=== PATIENT | male | born 1990 | race Asian ===

== ENCOUNTER 2016-06-15 00:30 | Inpatient (IN) | payer MEDICARE, OTHER ==
[~2016-06-15] VITALS: Ht 176.5 cm; Wt 93.1 kg
[~2016-06-15 00:30] MED LIST: BENZ1 PO; HALO10 PO; HALO50P IM; OLAN10 PO; PROT40TA PO
[2016-06-15 00:35] VITALS: BP 129/87; PULSE 77; RESP 16; TEMP 97.5; O2SAT 98
[2016-06-15] MEDS ORDERED: HALO2TAB PO (03:33)
[2016-06-15] MEDS ORDERED: OLAN10TA PO (03:33)
[2016-06-15] MEDS ORDERED: BENZ1TAB PO (03:33)
[2016-06-15] MEDS ORDERED: SODIUM CHLOR 0.9% 1000 ML INJ 1,000 ML IV SCH (03:42)
[2016-06-15] MEDS ORDERED: ONDANSETRON HCL 4 MG/2 ML VIAL IVP ONE (03:45)
[2016-06-15] MEDS ORDERED: SODIUM CHLORIDE 0.9% FLUSH 5 ML FLUSH IVF PRN (03:45)
--- NOTE | 2016-06-15 03:46 | PD ---
HPI Chief Complaint: Cold / Flu Symptoms Time Seen by Provider: 03:36 Travel History International Travel<30 days: No Contact w/Intl Traveler<30days: No Traveled to known affect area: No History of Present Illness HPI The patient is a 26-year-old male who presents emergency department for flulike symptoms. The patient states over the last several days he has had a sore throat, dry nonproductive cough, nausea, vomiting, diarrhea, intermittent abdominal crampy pain, and myalgias. The patient states his last episode of vomiting and diarrhea was approximately 2 hours prior to arrival. The patient does complain of subjective fevers with intermittent chills and sweats. The patient also has a history of schizophrenia and states he's had difficulty sleeping over the last several days. The patient is hearing voices in his head but denies any suicidal or homicidal ideation. The mother's request and a psychiatric evaluation for the voices and agitated mood. The patient's psychiatrist is Dr. Amado. The patient denies any recent international travel or sick contacts at home. PFSH Past Medical History Asthma: Yes (SINCE AGE 4 OR 5) Blood Disorders: No Bipolar Disorder: Yes Anxiety: Yes Depression: No Heart Rhythm Problems: No Cancer: No Cardiovascular Problems: No High Cholesterol: No Chemotherapy: No Chest Pain: No Congestive Heart Failure: No COPD: No Diabetes: No Diminished Hearing: No Endocrine: No Gastrointestinal Disorders: No Genitourinary: No Immune Disorder: No Musculoskeletal: No Neurologic: No Psychiatric: Yes (shizopherenia) Reproductive: No Respiratory: No Immunizations Current: Yes Radiation Therapy: No Schizophrenia: Yes Sleep Apnea: No Thyroid Disease: No Influenza Vaccination: No Past Surgical History Other Surgery: Yes (see history and physical) Social History Alcohol Use: No Tobacco Use: Yes (states he quit smoking last night) Substance Use: No (pt denies) Allergies-Medications (Allergen,Severity, Reaction): Coded Allergies: No Known Allergies (Verified , 06/15/16) Reported Meds & Prescriptions Reported Meds & Active Scripts Active Reported Haloperidol 2 Mg Tab 2 Mg PO BID Benztropine (Benztropine Mesylate) 1 Mg Tab 1 Mg PO HS Olanzapine 10 Mg Tab 10 Mg PO HS Review of Systems General / Constitutional: Positive: Fever, Chills HENT: Positive: Sore Throat Respiratory: Positive: Cough Gastrointestinal: Positive: Nausea, Vomiting, Diarrhea, Abdominal Pain Genitourinary: No: Dysuria Musculoskeletal: Positive: Myalgias Psychiatric: Positive: Disorder of Thought, No: Substance Abuse Physical Exam Narrative GENERAL: Awake, alert, 26-year-old male who appears his stated age and is in no acute respiratory distress. SKIN: Warm and dry. HEAD: Atraumatic. Normocephalic. EYES: Pupils equal and round. No scleral icterus. No injection or drainage. ENT: No nasal bleeding or discharge. Oropharynx reveals erythema but no exudate. NECK: Trachea midline. No JVD. CARDIOVASCULAR: Regular rate and rhythm. No murmur appreciated. RESPIRATORY: No accessory muscle use. Clear to auscultation. Breath sounds equal bilaterally. GASTROINTESTINAL: Abdomen soft, non-tender, nondistended. No rebound tenderness. MUSCULOSKELETAL: No obvious deformities. No clubbing. No cyanosis. No edema. NEUROLOGICAL: Awake and alert. No obvious cranial nerve deficits. Motor grossly within normal limits. Normal speech. Nonfocal. PSYCHIATRIC: Appropriate mood and affect; insight and judgment normal. Data Data Last Documented VS Vital Signs Date Time Temp Pulse Resp B/P Pulse Ox O2 Delivery O2 Flow Rate FiO2 06/15/16 04:01 79 16 135/83 96 Room Air 06/15/16 00:35 97.5 Orders Complete Blood Count With Diff (06/15/16 03:42) Comprehensive Metabolic Panel (06/15/16 03:42) Lipase (06/15/16 03:42) Iv Access Insert/Monitor (06/15/16 03:42) Ecg Monitoring (06/15/16 03:42) Oximetry (06/15/16 03:42) Ondansetron Inj (Zofran Inj) (06/15/16 03:45) Sodium Chlor 0.9% 1000 Ml Inj (Ns 1000 M (06/15/16 03:42) Sodium Chloride 0.9% Flush (Ns Flush) (06/15/16 03:45) Psych Screen (06/15/16 03:42) Influenzae A/B Antigen (06/15/16 03:46) Labs Laboratory Tests Test 06/15/16 03:50 White Blood Count 7.7 TH/MM3 Red Blood Count 6.21 MIL/MM3 Hemoglobin 16.9 GM/DL Hematocrit 50.1 % Mean Corpuscular Volume 80.6 FL Mean Corpuscular Hemoglobin 27.3 PG Mean Corpuscular Hemoglobin 33.8 % Concent Red Cell Distribution Width 13.9 % Platelet Count 221 TH/MM3 Mean Platelet Volume 8.3 FL Neutrophils (%) (Auto) 63.7 % Lymphocytes (%) (Auto) 28.7 % Monocytes (%) (Auto) 6.1 % Eosinophils (%) (Auto) 0.8 % Basophils (%) (Auto) 0.7 % Neutrophils # (Auto) 4.9 TH/MM3 Lymphocytes # (Auto) 2.2 TH/MM3 Monocytes # (Auto) 0.5 TH/MM3 Eosinophils # (Auto) 0.1 TH/MM3 Basophils # (Auto) 0.1 TH/MM3 CBC Comment DIFF FINAL Differential Comment Sodium Level 139 MEQ/L Potassium Level 4.0 MEQ/L Chloride Level 102 MEQ/L Carbon Dioxide Level 24.5 MEQ/L Anion Gap 13 MEQ/L Blood Urea Nitrogen 7 MG/DL Creatinine 0.83 MG/DL Estimat Glomerular Filtration 111 ML/MIN Rate Random Glucose 87 MG/DL Calcium Level 9.1 MG/DL Total Bilirubin 0.6 MG/DL Aspartate Amino Transf 56 U/L (AST/SGOT) Alanine Aminotransferase 93 U/L (ALT/SGPT) Alkaline Phosphatase 74 U/L Total Protein 8.6 GM/DL Albumin 4.5 GM/DL Lipase 145 U/L MDM Medical Decision Making Medical Screen Exam Complete: Yes Emergency Medical Condition: Yes Medical Record Reviewed: Yes Interpretation(s) Date/Time Procedure Status Source Growth 06/15/16 03:50 Influenza Types A,B Antigen (ERIC) - Final Complete Nasal Aspirate NEGATIVE FOR FLU A AND B ANTIGEN.... Laboratory Tests Test 06/15/16 03:50 White Blood Count 7.7 TH/MM3 Red Blood Count 6.21 MIL/MM3 Hemoglobin 16.9 GM/DL Hematocrit 50.1 % Mean Corpuscular Volume 80.6 FL Mean Corpuscular Hemoglobin 27.3 PG Mean Corpuscular Hemoglobin 33.8 % Concent Red Cell Distribution Width 13.9 % Platelet Count 221 TH/MM3 Mean Platelet Volume 8.3 FL Neutrophils (%) (Auto) 63.7 % Lymphocytes (%) (Auto) 28.7 % Monocytes (%) (Auto) 6.1 % Eosinophils (%) (Auto) 0.8 % Basophils (%) (Auto) 0.7 % Neutrophils # (Auto) 4.9 TH/MM3 Lymphocytes # (Auto) 2.2 TH/MM3 Monocytes # (Auto) 0.5 TH/MM3 Eosinophils # (Auto) 0.1 TH/MM3 Basophils # (Auto) 0.1 TH/MM3 CBC Comment DIFF FINAL Differential Comment Sodium Level 139 MEQ/L Potassium Level 4.0 MEQ/L Chloride Level 102 MEQ/L Carbon Dioxide Level 24.5 MEQ/L Anion Gap 13 MEQ/L Blood Urea Nitrogen 7 MG/DL Creatinine 0.83 MG/DL Estimat Glomerular Filtration 111 ML/MIN Rate Random Glucose 87 MG/DL Calcium Level 9.1 MG/DL Total Bilirubin 0.6 MG/DL Aspartate Amino Transf 56 U/L (AST/SGOT) Alanine Aminotransferase 93 U/L (ALT/SGPT) Alkaline Phosphatase 74 U/L Total Protein 8.6 GM/DL Albumin 4.5 GM/DL Lipase 145 U/L Differential Diagnosis Differential diagnosis includes gastritis, influenza, viral syndrome, food poisoning, schizoaffective disorder, schizophrenia, psychosis, substance induced mood disorder. Narrative Course IV was established, labs were drawn and sent, and the patient was placed on cardiac telemetry monitoring and continuous pulse oximetry monitoring. Influenza screen was sent to lab. The patient was administered Zofran and 1 L of IV fluids. The patient's influenza screen is negative. AST nail tear mildly elevated, otherwise labs are unremarkable. The patient is medically clear to be admitted by psychiatry. Disposition as per psych. Diagnosis Primary Impression: Gastroenteritis Additional Impression: Schizophrenia, chronic with acute exacerbation Condition: Stable Wilbert Escalona MD Jun 15, 2016 03:46
[2016-06-15 04:01] VITALS: BP 135/83; PULSE 79; RESP 16; O2SAT 96
[2016-06-15 04:05] LABS: AUTOMATED NEUTROPHIL # 4.9 TH/MM3 (1.8-7.7); BASOPHIL # 0.1 TH/MM3 (0-0.2); BASOPHIL % 0.7 % (0.0-2.0); EOSINOPHIL # 0.1 TH/MM3 (0-0.4); EOSINOPHIL % 0.8 % (0.0-4.0); HEMATOCRIT 50.1 % (39.0-51.0); HEMO FLAGS DIFF FINAL; LYMPH % 28.7 % (9.0-44.0); LYMPHOCYTE # 2.2 TH/MM3 (1.0-4.8); MEAN CELL VOLUME 80.6 FL (80.0-100.0); MEAN CORPUSCULAR HEMOGLOBIN 27.3 PG (27.0-34.0); MEAN CORPUSCULAR HGB CONC 33.8 % (32.0-36.0); MONO % 6.1 % (0.0-8.0); NEUT % 63.7 % (16.0-70.0); PLATELET COUNT 221 TH/MM3 (150-450); RED BLOOD COUNT 6.21 MIL/MM3 (4.50-5.90); RED CELL DISTRIBUTION WIDTH 13.9 % (11.6-17.2); WHITE BLOOD COUNT 7.7 TH/MM3 (4.0-11.0)
[2016-06-15 04:37] LABS: ALKALINE PHOSPHATASE 74 U/L (45-117); TOTAL BILIRUBIN ADULT 0.6 MG/DL (0.2-1.0)
[2016-06-15 04:39] LABS: ALT (GPT) 93 U/L (12-78); ANION GAP 13 MEQ/L (5-15); AST (GOT) 56 U/L (15-37); BICARBONATE 24.5 MEQ/L (21.0-32.0); BLOOD UREA NITROGEN 7 MG/DL (7-18); CHLORIDE 102 MEQ/L (98-107); GLOMERULAR FILTRATION RATE 111 ML/MIN (>89); SODIUM (NA) 139 MEQ/L (136-145)
[2016-06-15 09:00] VITALS: BP 138/92; PULSE 72; RESP 18; TEMP 98.7; O2SAT 96
[2016-06-15 11:55] LABS: AMPHETAMINE, URINE NEG (NEG); BARBITURATES, URINE NEG (NEG); COCAINE, URINE NEG (NEG)
[2016-06-15] MEDS ORDERED: LORazepam 2 MG/ML VIAL IM PRN (17:15)
[2016-06-15] MEDS ORDERED: ALUMINUM/MAGNESIUM/SIMETH 30 ML CUP PO PRN (17:15)
[2016-06-15] MEDS ORDERED: MAGNESIUM HYDROXIDE SUSP 30 ML CUP PO PRN (17:15)
[2016-06-15] MEDS ORDERED: ACETAMINOPHEN 325 MG TAB PO PRN (17:15)
[2016-06-15] MEDS ORDERED: LORazepam 1 MG TAB PO PRN (17:15)
[2016-06-15 17:55] VITALS: BP 193/97; PULSE 77; RESP 18; TEMP 97.4; O2SAT 97
[2016-06-15] MEDS: REMOVE OLD NICOTINE PATCH T-DERMAL SCH (21:00)
[2016-06-15] MEDS: HALOPERIDOL 2 MG TAB PO SCH (21:16)
[2016-06-16 06:04] VITALS: BP 154/75; PULSE 70; RESP 18; TEMP 97.2; O2SAT 98
[2016-06-16 07:36] LABS: ANION GAP 10 MEQ/L (5-15); BICARBONATE 27.5 MEQ/L (21.0-32.0); BLOOD UREA NITROGEN 6 MG/DL (7-18); CHLORIDE 104 MEQ/L (98-107); GLOMERULAR FILTRATION RATE 96 ML/MIN (>89); POTASSIUM 3.7 MEQ/L (3.5-5.1); SODIUM (NA) 141 MEQ/L (136-145)
[2016-06-16 07:41] LABS: HDL CHOLESTEROL 57.5 MG/DL (40.0-60.0); LDL CHOLESTEROL 40 MG/DL (0-99)
[2016-06-16] MEDS: HALOPERIDOL 2 MG TAB PO SCH ×3 (08:42→20:34)
[2016-06-16] MEDS: NICOTINE 21 MG/24 HR PATCH T-DERMAL SCH (08:42)
--- NOTE | 2016-06-16 10:43 | HHI.HP ---
Provisional Diagnosis Admission Date Jun 15, 2016 at 17:05 [place] I. Schizo affective disorder bipolar type. [place] II. No diagnosis [place] III. Please see the emergency room evaluation [place] IV. Moderate stress [place] V. GAF of 45 Certification of Person's Competence To Provide Express and Informed Consent I have personally examined Adelaide Garduno , a person being served at [facility] on, Jun 16, 2016 10:36. Express and informed consent means consent voluntarily given in writing, by a competent person, after sufficient explanation and disclosure of the subject matter involved to enable the person to make a knowing and willful decision without any element of force, fraud, deceit, duress, or other form of constraint or coercion. This person is 18 years of age or older, is not now known to be incompetent to consent to treatment with a guardian advocate, and does not have a health care surrogate or proxy currently making medical treatment decisions. I have found this person to be one of the following: [x] Competent to provide express and informed consent, as defined above, for voluntary admission to this facility and is competent to provide express and informed consent for treatment. He/she has the consistent capacity to make well reasoned, willful, and knowing decisions concerning his or her medical or mental health treatment. The person fully and consistently understands the purpose of the admission for examination/placement and is fully capable of personally exercising all rights assured [place] Incompetent to provide express and informed consent to voluntary admission, and this is incompetent to provide express and informed consent to treatment. The person must be transferred to involuntary status and a petition for a guardian advocate filed with the Circuit Court. [] Refusing to provide express and informed consent to voluntary admission but is competent to provide express and informed consent for treatment. The person must be discharged or transferred to involuntary status. Form shall be completed within 24 hours of a person's arrival at the receiving facility and filed in the clinical record of each person: 1. Admitted on a voluntary basis 2. Permitted to provide express and informed consent to his/her own treatment 3. Allowed to transfer from involuntary to voluntary status 4. Prior to permitting a person to consent to his or her own treatment after having been previously found incompetent to consent to treatment. History of Present Illness Capacity: Has Capacity HPI This is a 26-year-old male who was admitted. He came as a voluntary and later on the ex parte paper came in. Patient claimed that he does not want to take any medication because it makes him feel bad he is not able to sleep. He denies any suicidal and/or homicidal ideation intentions or plan. He denied any auditory or visual hallucinations. He lives with his mother. He claimed that he has tried Seroquel and Depakote Abilify and Haldol nothing seems to be working and he does not want to take any medication. No behavior or management problem reported. He lives with his mother and follows up as an outpatient. Review of Systems Except as stated in HPI: all other systems reviewed are Neg Psychiatric: COMPLAINS OF: Mood changes Past Psych History Psychological trauma history Patient denied any physical verbal or sexual abuse growing up Violence risk - others (6 mos) Patient denied any violence risk Violence risk - self (6 mos) Patient denied any suicidal ideation intentions or plan Substance Abuse History Drugs/Alcohol past 12 months Patient denied any alcohol or drug abuse in the past 12 months Past Family Social History Coded Allergies: No Known Allergies (Verified , 06/15/16) Reported Medications Haloperidol 2 Mg Tab2 Mg PO BID Ref 0 06/15/16 Benztropine 1 Mg Tab1 Mg PO HS #30 TAB Ref 0 06/15/16 Olanzapine 10 Mg Tab10 Mg PO HS #30 TAB Ref 0 06/15/16 Current Medications Medications (Trade) Dose Ordered Sig/Lorin Route Start Time Stop Time Status Last Admin (NS Flush) 2 ml UNSCH PRN IVF 06/15/16 03:45 (Ativan) 1 mg Q6H PRN PO 06/15/16 17:15 (Ativan Inj) 1 mg Q6H PRN IM 06/15/16 17:15 (Tylenol) 650 mg Q4H PRN PO 06/15/16 17:15 (Milk Of Magnesia Liq) 30 ml DAILY PRN PO 06/15/16 17:15 (Mag-Al Plus Susp Liq) 30 ml Q6H PRN PO 06/15/16 17:15 (Habitrol 21 Mg Patch.24 Hr) 1 patch DAILY T-DERMAL 06/16/16 09:00 06/16/16 08:42 Miscellaneous Information 1 HS T-DERMAL 06/15/16 21:00 06/15/16 21:00 (Haldol) 2 mg BID PO 06/15/16 21:00 06/16/16 08:42 (ZyPREXA) 10 mg HS PO 06/16/16 21:00 (Cogentin) 1 mg HS PO 06/16/16 21:00 Family History Questionable for depression or mental illness Social History Patient was born in [facility]. He has 2 brothers and one sister. He is close to both of his parents. He described his childhood as happy he denied any physical verbal or sexual abuse growing up. He finished high school and college. He has not been he does not have any children. He denied any auditory or visual hallucinations denied any alcohol or drug abuse. Has not been working. He claimed that the medication doesn't seem to be helping him Patient's Strengths (min. 2) Patient is calm and cooperative Physical Exam Please see the emergency room evaluation patient denied any physical complaints his vital signs are stable and he was medically cleared to be admitted to psychiatric unit Vital Signs Vital Signs Date Time Temp Pulse Resp B/P Pulse Ox O2 Delivery O2 Flow Rate FiO2 06/16/16 06:04 97.2 70 18 154/75 98 06/15/16 09:00 Room Air Mental Status Examination This is a 26-year-old male who looks about the same as his stated age was alert oriented 3 cooperative casually dressed his speech was clear spontaneous without any evidence of loose associations or flights of ideas or pressure speech his mood was described as not feeling well and having some side effects from the medication that he has been taking and he does not want to take the medication. He denied any suicidal ideation intentions or plan. He denied any auditory or visual hallucinations. There was no evidence of any paranoid delusion. No behavior or management problem reported. He seems to be of file low average intelligence with fairly good memory. His insight is limited and his judgment seems to be okay on hypothetical situation his gait is normal his language is normal his fund of knowledge is average Assessment & Plan Problem List: (1) Schizophrenia, chronic with acute exacerbation ICD Code: F20.9 (2) Schizoaffective disorder, bipolar type ICD Code: F25.0 Assessment & Plan Estimated LOS: 5 days. This is a 26-year-old white male with a diagnosis of either schizophrenic disorder or schizoaffective disorder. Has been having some difficulty with taking the medication he complaints about side effect and does not wish to take the medication. He has been living with his mother will try to find out some medication that he can take without any side effect area. Admitted observe and evaluate and treat. Patient is willing to sign voluntary. Patient will participate in all the therapeutic activity on the floor. Side effect another alternative treatment were explained to the patient. nutrition services associate to assist in aftercare and discharge planning. Vital signs every shift. Request HC Surrog/Guard Advoc?: No David Ceballos MD Jun 16, 2016 10:43
[2016-06-16] MEDS: BENZTROPINE MESYLATE 1 MG TAB PO SCH ×2 (20:29→20:34)
[2016-06-16] MEDS: OLANZapine 10 MG TAB PO SCH ×2 (20:30→20:34)
[2016-06-16] MEDS: REMOVE OLD NICOTINE PATCH T-DERMAL SCH (20:33)
[2016-06-16 22:26] VITALS: BP 132/88; PULSE 72; RESP 18; TEMP 98.5; O2SAT 98
[2016-06-17 05:34] VITALS: BP 130/66; PULSE 76; RESP 18; TEMP 97.6; O2SAT 97
[2016-06-17] MEDS: NICOTINE 21 MG/24 HR PATCH T-DERMAL SCH (09:00)
[2016-06-17] MEDS: HALOPERIDOL 2 MG TAB PO SCH (09:00)
[2016-06-17 10:12] LABS: HEMOGLOBIN A1a 0.9 %; HEMOGLOBIN A1b 0.6 %; HEMOGLOBIN Ao 56.8 %; HEMOGLOBIN F 1.3 %; HEMOGLOBIN LA1C 1.3 %; HEMOGLOBIN P3 4.4 %
--- NOTE | 2016-06-17 15:58 | HHI.PYPN ---
Subjective Remarks Patient was seen and case discussed with nursing. Patient has refused his Zyprexa last night and his Haldol today. He was asking nursing earlier for Adderall. He remains disheveled and hyperverbal. Flight of ideas. Poor insight into his admission. Irritable towards his mother. Psychoeducation was done and patient is willing to give Zyprexa another try. We will order its 5 mg by mouth twice a day. Denies psychotic symptoms Objective Alert: Yes [place]: Person Mood: Anxious, Oppositional Affect: Other (anxious) Memory Intact: Comment (not tested) Hallucinations: Other (denies blood poor historian) Delusions: No Delusion Type: Paranoid (thinking there are germs on the unit) Suicidal: Ideation (denies) Homicidal: Ideation (denies) Insight/Judgement Poor Labs Date/Time Procedure Status Source Growth 06/15/16 03:50 Influenza Types A,B Antigen (ERIC) - Final Complete Nasal Aspirate NEGATIVE FOR FLU A AND B ANTIGEN.... Vitals/IOs Vital Signs Date Time Temp Pulse Resp B/P Pulse Ox O2 Delivery O2 Flow Rate FiO2 06/17/16 05:34 97.6 76 18 130/66 97 06/15/16 09:00 Room Air Assessment & Plan Problem List: (1) Schizophrenia, chronic with acute exacerbation ICD Code: F20.9 (2) Schizoaffective disorder, bipolar type ICD Code: F25.0 Assessment & Plan DC Haldol. Change Zyprexa to 5 mg by mouth twice a day. Encouraged compliance Justification for Cont. Inpt. Patient will decompensate in a less restrictive setting Request HC Surrog/Guard Advoc?: No Pj Joshua DO Jun 17, 2016 15:58
[2016-06-17] MEDS: OLANZapine 5 MG TAB PO SCH ×2 (16:00→21:22)
[2016-06-17 19:08] VITALS: BP 130/95; PULSE 78; RESP 18; TEMP 98.1; O2SAT 92
[2016-06-17] MEDS: REMOVE OLD NICOTINE PATCH T-DERMAL SCH (21:00)
[2016-06-17] MEDS: BENZTROPINE MESYLATE 1 MG TAB PO SCH (21:22)
[2016-06-18 06:23] VITALS: BP 132/68; PULSE 74; RESP 18; TEMP 98.2; O2SAT 96
[2016-06-18] MEDS: NICOTINE 21 MG/24 HR PATCH T-DERMAL SCH ×2 (09:00→09:17)
[2016-06-18] MEDS: OLANZapine 5 MG TAB PO SCH (09:17)
--- NOTE | 2016-06-18 10:01 | HHI.PYPN ---
Subjective Remarks I am assuming care of this patient. Patient seen and examined with nurse. Chart reviewed. Case discussed with nursing staff who reports patient has been no behavioral problem. On my examination today, patient is in good spirits. He says that he came into the hospital because he didn't think his medications were working right. He denies any suicidal or homicidal ideation. He denies any audiovisual hallucinations but also say that he is hearing something like " a fly in my ear." Thought process seems generally linear and there is no evidence of any paranoia or other significant delusional material. He does articulate difficulty concentrating and says that he thinks he might have attention deficit disorder and might need a stimulant. Psychoeducation provided regarding the effects of stimulants on patients with psychotic illnesses. He denies side effects from medications. He does not wish to resume Haldol Decanoate, which he has been on in the past, preferring to continue with Zyprexa monotherapy. He is agreeable to titrating his Zyprexa and is presently voluntary. Review of Systems ROS Limitations: Poor Historian Other No physical complaints today Objective Alert: Yes [place]: Person, Place Mood: Calm, Happy Affect: Blunted Memory Intact: Comment (not formally assessed but seems at least fair on clinical exam) Hallucinations: Other (denies AVH) Delusions: No Delusion Type: Other (no regine delusional material) Suicidal: Ideation (denies suicidal ideation) Homicidal: Ideation (denies homicidal ideation) Insight/Judgement Fair to poor Remarks No motoric abnormalities noted. Thought process fairly linear. Speech within normal limits for rate, tone and volume. Grooming and hygiene seem fair. Labs Date/Time Procedure Status Source Growth 06/15/16 03:50 Influenza Types A,B Antigen (ERIC) - Final Complete Nasal Aspirate NEGATIVE FOR FLU A AND B ANTIGEN.... Labs reviewed including CBC, CMP and tox screen. Extended toxicological screening pending. Vitals/IOs Vital Signs Date Time Temp Pulse Resp B/P Pulse Ox O2 Delivery O2 Flow Rate FiO2 06/18/16 06:23 98.2 74 18 132/68 96 06/15/16 09:00 Room Air VS reviewed. HTN earlier this admission seems resolved now. Assessment & Plan Problem List: (1) Schizophrenia ICD Code: F20.9 (2) Cannabis abuse ICD Code: F12.10 Assessment & Plan Titrate Zyprexa per patient preference and to try to improve subjective difficulties with concentration, which I suspect are at least in part related to distraction from some degree of internal preoccupation or subtle thought disorder. Continue other medications and care as ordered. Justification for Cont. Inpt. Medication adjustments in process. Discharge Planning Pending psychiatric stabilization. I have asked counselor to reach out the patient's family with patient's permission to discuss disposition; his mother seems fairly involved. Patient is presently voluntary, and I see no basis to change his status at this time. Request HC Surrog/Guard Advoc?: No Problem Qualifiers (1) Schizophrenia: Qualified Code: F20.0 - Paranoid schizophrenia Tj Jose MD Jun 18, 2016 10:00
[2016-06-18 18:11] VITALS: BP 128/84; PULSE 79; RESP 18; TEMP 98; O2SAT 95
[2016-06-18] MEDS: OLANZapine 2.5 MG TAB PO SCH (20:23)
[2016-06-18] MEDS: BENZTROPINE MESYLATE 1 MG TAB PO SCH (20:23)
[2016-06-18] MEDS: REMOVE OLD NICOTINE PATCH T-DERMAL SCH (20:24)
[2016-06-19 05:35] VITALS: BP 133/67; PULSE 53; RESP 18; TEMP 97.7; O2SAT 98
[2016-06-19] MEDS: OLANZapine 2.5 MG TAB PO SCH ×2 (08:17→20:34)
[2016-06-19] MEDS: NICOTINE 21 MG/24 HR PATCH T-DERMAL SCH (08:17)
--- NOTE | 2016-06-19 11:47 | HHI.PYPN ---
Subjective Remarks Patient seen and examined with nurse. Chart reviewed. Case discussed in treatment team with nurse, counselor and occupational therapist. Per nursing staff, patient is calm and cooperative with no behavioral problems. On my examination today, patient is in good spirits. He says that titrating his Zyprexa yesterday was "just the medication adjustment I needed." He feels much improved and denies any SI, HI or AVH. He no longer feels like he can hear a fly buzzing in his ear. He denies any side effects from medications. He is hopeful for discharge tomorrow. Review of Systems Other No physical complaints today Objective Alert: Yes [place]: Person, Place Mood: Happy Affect: Euthymic Memory Intact: Comment (Intact on clinical exam.) Hallucinations: Other (denies AVH) Delusions: No Delusion Type: Other (No delusions) Suicidal: Ideation (denies SI) Homicidal: Ideation (denies HI) Insight/Judgement Fair Remarks Thought processes linear. No abnormal motor movements noted. Speech within normal limits for rate, tone and volume. Grooming and hygiene are good. Labs Date/Time Procedure Status Source Growth 06/15/16 03:50 Influenza Types A,B Antigen (ERIC) - Final Complete Nasal Aspirate NEGATIVE FOR FLU A AND B ANTIGEN.... Labs reviewed. Vitals/IOs Vital Signs Date Time Temp Pulse Resp B/P Pulse Ox O2 Delivery O2 Flow Rate FiO2 06/19/16 05:35 97.7 53 18 133/67 98 06/15/16 09:00 Room Air Assessment & Plan Problem List: (1) Schizophrenia ICD Code: F20.9 (2) Cannabis abuse ICD Code: F12.10 Assessment & Plan Patient seems to be doing well with current regimen. Continue Zyprexa as ordered. Continue other medications and care as ordered. Justification for Cont. Inpt. Final discharge planning Discharge Planning Monitor overnight. Anticipate discharge tomorrow. Request HC Surrog/Guard Advoc?: No Problem Qualifiers (1) Schizophrenia: Qualified Code: F20.0 - Paranoid schizophrenia Tj Jose MD Jun 19, 2016 11:47
[2016-06-19 17:30] VITALS: BP 146/88; PULSE 69; RESP 18; TEMP 98.2; O2SAT 98
[2016-06-19] MEDS: BENZTROPINE MESYLATE 1 MG TAB PO SCH (20:34)
[2016-06-19] MEDS: REMOVE OLD NICOTINE PATCH T-DERMAL SCH (20:47)
[2016-06-20 06:11] VITALS: BP 119/78; PULSE 52; RESP 18; TEMP 97.6; O2SAT 99
[2016-06-20] MEDS: NICOTINE 21 MG/24 HR PATCH T-DERMAL SCH ×2 (08:17→08:34)
[2016-06-20] MEDS: OLANZapine 2.5 MG TAB PO SCH (08:18)
[2016-06-20] MEDS ORDERED: BENZ1TAB PO (11:18)
[2016-06-20] MEDS ORDERED: OLAN2.5T PO (11:18)
--- NOTE | 2016-06-20 11:18 | HHI.DS ---
Psychiatry Discharge Summary Inpatient Psychiatric care?: Yes Advance Directive: No Reason Not Provided: refused Mental Health AdvanceDirective: No Health Care Proxy: No Admission Admission Date Jun 15, 2016 at 17:05 Admission Diagnosis: (1) Schizoaffective disorder, bipolar type ICD Code: F25.0 (2) Schizophrenia, chronic with acute exacerbation ICD Code: F20.9 Brief History This is a 26-year-old male who was admitted. He came as a voluntary and later on the ex parte paper came in. Patient claimed that he does not want to take any medication because it makes him feel bad he is not able to sleep. He denies any suicidal and/or homicidal ideation intentions or plan. He denied any auditory or visual hallucinations. He lives with his mother. He claimed that he has tried Seroquel and Depakote Abilify and Haldol nothing seems to be working and he does not want to take any medication. No behavior or management problem reported. He lives with his mother and follows up as an outpatient. Tobacco Use In Past 30 Days: No Tobacco Past 30 Days Alcohol Use: Never Hospital Course Patient was admitted to a locked, inpatient psychiatric unit. Appropriate precautions were in place throughout patient's hospital stay. Patient was seen and examined daily on the unit by psychiatry and also visited by counselor. Medications were adjusted. Patient responded nicely to titration of Zyprexa to a total daily dose of 15 mg per day. He had significant improvement in his presenting psychiatric symptomatology. There was no evidence of any suicidal or homicidal behavior on the inpatient unit. Patient remained in good behavioral control and was medication compliant. Charting indicates the patient has been sleeping and eating well although his participation in unit activities has been somewhat limited. On the day of discharge: Patient seen and examined. Chart reviewed. Case discussed with nursing staff who reports patient has been calm and pleasant and no behavioral problem. On my examination today, the patient reports that he feels improved and is requesting discharge from the inpatient psychiatric unit today. Mood is good, and he denies any suicidal or homicidal ideation. He is future oriented with several near and long-term goals. For example, he would like to go to the gym and also to do some volunteer work. He denies any audiovisual hallucinations, and I can elicit no delusional beliefs. He denies any side effects from medications. He has no physical complaints. Weighing the acute, chronic, and protective factors and based on the available evidence, I circuit judge to a reasonable degree of medical certainty that the patient is at low imminent risk of harm to self or others from a mental illness as defined under the Syed act and his level of function is adequate for outpatient care. Given that I have no basis to retain this patient involuntarily at this time and given that he is requesting discharge from the inpatient psychiatric unit today, I will arrange for his discharge was psychiatric follow-up as arranged by counselor. Patient is also to follow-up with primary care. I counseled patient regarding warning signs for need to return to the psychiatric emergency room as part of a general safety plan. Results Blood Pressure 119 / 78 Vital Signs Date Time Temp Pulse Resp B/P Pulse Ox O2 Delivery O2 Flow Rate FiO2 06/20/16 06:11 97.6 52 18 119/78 99 Laboratory Results Test 06/16/16 06:41 Hemoglobin A1c 5.7 % (4.3-6.0) Triglycerides Level 121 MG/DL (42-150) Cholesterol Level 122 MG/DL (120-200) LDL Cholesterol 40 MG/DL (0-99) HDL Cholesterol 57.5 MG/DL (40.0-60.0) Summary of Procedures None done Imaging None done Pending results at discharge: No Medications # of Antipsychotic meds at D/C: 1 Approp Antipsych med options 1 - Minimum of three failed multiple trials of monotherapy. 2 - Documented plan to taper to monotherapy due to previous use of multiple meds OR cross-taper in progress at D/C. 3 - Documentation of augmentation of Clozapine. 4 - Justification other than those listed in allowable values 1-3, document here : Discharge Discharge Date: Jun 20, 2016 Discharge Diagnosis: (1) Schizophrenia Diagnosis: Principal (stabilized) ICD Code: F20.9 (2) Cannabis abuse Diagnosis: Secondary (counseled to quit) ICD Code: F12.10 GAF on discharge is 55. Mental Status Exam at Disch Patient is casually dressed. He is fairly well groomed and certainly maintaining basic hygiene. He is awake and alert and oriented to person and hospital at least. No abnormal motor movements noted. Speech is within normal limits for rate, tone and volume. Language and fund of knowledge seem at least average. Mood is good and affect is full and reactive. Thought process linear. No loosening of associations. No evident delusions. Denies audiovisual hallucinations. Denies suicidal or homicidal ideation. Insight and judgment are fair. Pt Condition on Discharge: Stable Discharge Disposition: Discharge Home Discharge Instructions Diet Instructions: As Tolerated, No Restrictions Activities you can perform: Weight Bearing as Nils Scheduled Appointment: [facility] Evette Meggan Appointment Date: Jun 25, 2016 Appointment Time: 7:30am New Medications: Olanzapine (Olanzapine) 2.5 Mg Tab 7.5 MG PO Q12HR Mental Health Days 15 Ref 1 TAB Continued Medications: Benztropine (Benztropine) 1 Mg Tab 1 MG PO HS Side effect management Days 15 Ref 1 TAB (This prescription has been renewed) Discontinued Medications: Haloperidol (Haloperidol) 2 Mg Tab 2 MG PO BID Ref 0 TAB Olanzapine (Olanzapine) 10 Mg Tab 10 MG PO HS #30 Ref 0 TAB Discharge Time <= 30 minutes Discharge/Advance Care Plan Health Problems: (1) Schizophrenia (2) Cannabis abuse Goals to promote your health * To prevent worsening of your condition and complications * To maintain your health at the optimal level Directions to meet your goals Take your medications as prescribed Follow your dietary instruction Follow activity as directed Keep your appointments as scheduled Take your immunizations and boosters as scheduled If your symptoms worsen call your PCP, if no PCP go to Urgent Care Center or Emergency Room For 29/10 questions related to your inpatient stay or results of tests pending at discharge, please contact Dr. Tj Jose at Smoking is Dangerous to Your Health. Avoid second hand smoking Problem Qualifiers (1) Schizophrenia: Qualified Code: F20.0 - Paranoid schizophrenia Tj Jose MD Jun 20, 2016 11:18
[2016-06-20 11:24] LABS: PHENCYCLIDINE URINE NEG (NEG)
[2016-06-20 11:25] LABS: BATH SALTS (MDPV) UR NEG (NEG); ECSTASY (MDMA) UR NEG (NEG); HEROIN (6-ACETYLMORPHINE) UR NEG (NEG); K2 SPICE UR NEG (NEG); OBMETHADONE UR NEG (NEG); OXYCODONE (PERCODAN) NEG (NEG)
== END 2016-06-20 16:30 | disposition home or self-care (01) | DRG 885 ==
LOC: NEPC 00:30 → NEDA 17:05 → H270 17:39
PROVIDERS: ADMIT Psychiatry & Neurology Psychiatry; ATTEND Psychiatry & Neurology Psychiatry
DX: F20.0 Paranoid schizophrenia (principal); F12.10 Cannabis abuse, uncomplicated; K52.9 Noninfective gastroenteritis and colitis, unspecified; J45.909 Unspecified asthma, uncomplicated
CPT/HCPCS: 80048; 80053; 80061; 80307; 83036; 83690; 85025; 87804; 96361; 96374; G0481; J2405; J7030

== ENCOUNTER 2016-07-13 03:13 | Inpatient (IN) | payer MEDICARE, OTHER ==
[~2016-07-13] VITALS: Ht 175.3 cm; Wt 94.1 kg
[~2016-07-13 03:13] MED LIST changes: -BENZ1 PO; +BENZ1TAB PO; -HALO10 PO; -HALO50P IM; -OLAN10 PO; +OLAN2.5T PO; -PROT40TA PO
[2016-07-13 03:34] VITALS: BP 113/63; PULSE 91; RESP 16; TEMP 98.7; O2SAT 99
--- NOTE | 2016-07-13 03:44 | PD ---
HPI Chief Complaint: Psychiatric Symptoms Time Seen by Provider: 03:30 Travel History International Travel<30 days: No Contact w/Intl Traveler<30days: No Traveled to known affect area: No History of Present Illness HPI This Is a 26-year-old male with history of schizophrenia and bipolar disorder per chart review. He presents under an exparte held by his mother and signed off by [facility] court judge for mental health examination. According to his paperwork the mother reported that he is not taking his medication and he has not slept in 3 days. He "wanted to kill himself. He locked himself in bedroom. He confused, memory lose, yelling, anger. He refused to take medicine." The patient was initially seen at [facility] and transferred here for psychiatric evaluation. This evening the patient received Ativan, Haldol and Benadryl per chart review. He is currently being and so history is difficult to obtain. He does awaken and answer questions someone prompted, albeit lethargically. The patient denies any suicidal ideation. He reports that he told a joke his mother and his mother did not think that he was choking. He does admit that he has not been sleeping well lately secondary to stress. He does not elaborate. When asked if he is taking his prescribed medication he says yes. He does not know what he is prescribed. He denies any drug or alcohol use. He is requesting something to eat and a blanket. He has no other complaints. PFSH Past Medical History Asthma: Yes (SINCE AGE 4 OR 5) Blood Disorders: No Bipolar Disorder: Yes Anxiety: Yes Depression: No Heart Rhythm Problems: No Cancer: No Cardiovascular Problems: No High Cholesterol: No Chemotherapy: No Chest Pain: No Congestive Heart Failure: No COPD: No Diabetes: No Diminished Hearing: No Endocrine: No Gastrointestinal Disorders: No Genitourinary: No Headaches: No Immune Disorder: No Musculoskeletal: No Neurologic: No Psychiatric: Yes (Hx of treatment for Schizophrenia) Reproductive: No Respiratory: No Immunizations Current: Yes Radiation Therapy: No Schizophrenia: Yes Sleep Apnea: No Thyroid Disease: No Past Surgical History Other Surgery: Yes (see history and physical) Social History Alcohol Use: No Tobacco Use: Yes (states he quit smoking last night) Substance Use: Yes (MARIJUANA) Allergies-Medications (Allergen,Severity, Reaction): Coded Allergies: No Known Allergies (Verified , 06/15/16) Reported Meds & Prescriptions Reported Meds & Active Scripts Active Olanzapine 2.5 Mg Tab 7.5 Mg PO Q12HR 15 Days Benztropine (Benztropine Mesylate) 1 Mg Tab 1 Mg PO HS 15 Days Review of Systems ROS Limitations: Poor Historian Except as stated in HPI: all other systems reviewed are Neg Physical Exam Exam Limitations: Poor Historian Narrative GENERAL: Well-developed well-nourished male who is sleeping but arousable. SKIN: Warm and dry. HEAD: Atraumatic. Normocephalic. EYES: Pupils equal and round. No scleral icterus. No injection or drainage. ENT: No nasal bleeding or discharge. Mucous membranes pink and moist. NECK: Trachea midline. No JVD. CARDIOVASCULAR: Regular rate and rhythm. No murmur appreciated. RESPIRATORY: No accessory muscle use. Clear to auscultation. Breath sounds equal bilaterally. GASTROINTESTINAL: Abdomen soft, non-tender, nondistended. Hepatic and splenic margins not palpable. MUSCULOSKELETAL: No obvious deformities. NEUROLOGICAL: No obvious cranial nerve deficits. Motor grossly within normal limits. Normal speech. Data Data Last Documented VS Vital Signs Date Time Temp Pulse Resp B/P Pulse Ox O2 Delivery O2 Flow Rate FiO2 07/13/16 03:34 98.7 91 16 113/63 99 Orders Complete Blood Count With Diff (07/13/16 03:35) Comprehensive Metabolic Panel (07/13/16 03:35) Psych Screen (07/13/16 03:35) Drug Screen, Random Urine (07/13/16 03:35) Alcohol (Ethanol) (07/13/16 03:35) Labs Laboratory Tests Test 07/13/16 03:40 White Blood Count 7.7 TH/MM3 Red Blood Count 5.79 MIL/MM3 Hemoglobin 15.6 GM/DL Hematocrit 46.5 % Mean Corpuscular Volume 80.2 FL Mean Corpuscular Hemoglobin 26.9 PG Mean Corpuscular Hemoglobin 33.6 % Concent Red Cell Distribution Width 14.6 % Platelet Count 205 TH/MM3 Mean Platelet Volume 8.1 FL Neutrophils (%) (Auto) 57.0 % Lymphocytes (%) (Auto) 30.9 % Monocytes (%) (Auto) 10.9 % Eosinophils (%) (Auto) 0.6 % Basophils (%) (Auto) 0.6 % Neutrophils # (Auto) 4.4 TH/MM3 Lymphocytes # (Auto) 2.4 TH/MM3 Monocytes # (Auto) 0.8 TH/MM3 Eosinophils # (Auto) 0.0 TH/MM3 Basophils # (Auto) 0.0 TH/MM3 CBC Comment DIFF FINAL Differential Comment Sodium Level 139 MEQ/L Potassium Level 3.5 MEQ/L Chloride Level 101 MEQ/L Carbon Dioxide Level 27.1 MEQ/L Anion Gap 11 MEQ/L Blood Urea Nitrogen 9 MG/DL Creatinine 0.91 MG/DL Estimat Glomerular Filtration 100 ML/MIN Rate Random Glucose 107 MG/DL Calcium Level 9.4 MG/DL Total Bilirubin 0.5 MG/DL Aspartate Amino Transf 41 U/L (AST/SGOT) Alanine Aminotransferase 74 U/L (ALT/SGPT) Alkaline Phosphatase 67 U/L Total Protein 7.5 GM/DL Albumin 3.9 GM/DL Ethyl Alcohol Level 48 MG/DL [facility] Medical Decision Making Medical Screen Exam Complete: Yes Emergency Medical Condition: Yes Medical Record Reviewed: Yes Differential Diagnosis Schizophrenia, medication noncompliance, acute psychosis, substance-induced disorder, bipolar disorder Narrative Course 26-year-old male presents under exparte for psychiatric evaluation. He has been seen here several times in the past for psychiatric evaluation. He has no medical complaints. Mental health screening discussed with the patient. Psychiatric screen ordered. Alcohol level is 48 otherwise lab work is unremarkable. The patient is medically cleared for psychiatric disposition. Diagnosis Primary Impression: Schizophrenia Qualified Code: F20.9 - Schizophrenia, unspecified type Elliot Andres Jul 13, 2016 03:44
[2016-07-13 03:49] LABS: AUTOMATED NEUTROPHIL # 4.4 TH/MM3 (1.8-7.7); BASOPHIL % 0.6 % (0.0-2.0); EOSINOPHIL % 0.6 % (0.0-4.0); HEMATOCRIT 46.5 % (39.0-51.0); HEMO FLAGS DIFF FINAL; LYMPH % 30.9 % (9.0-44.0); LYMPHOCYTE # 2.4 TH/MM3 (1.0-4.8); MEAN CELL VOLUME 80.2 FL (80.0-100.0); MEAN CORPUSCULAR HEMOGLOBIN 26.9 PG (27.0-34.0); MEAN CORPUSCULAR HGB CONC 33.6 % (32.0-36.0); MONO % 10.9 % (0.0-8.0); PLATELET COUNT 205 TH/MM3 (150-450); RED BLOOD COUNT 5.79 MIL/MM3 (4.50-5.90); RED CELL DISTRIBUTION WIDTH 14.6 % (11.6-17.2); WHITE BLOOD COUNT 7.7 TH/MM3 (4.0-11.0)
[2016-07-13 04:14] LABS: ANION GAP 11 MEQ/L (5-15); AST (GOT) 41 U/L (15-37); BICARBONATE 27.1 MEQ/L (21.0-32.0); BLOOD UREA NITROGEN 9 MG/DL (7-18); CHLORIDE 101 MEQ/L (98-107); GLOMERULAR FILTRATION RATE 100 ML/MIN (>89); POTASSIUM 3.5 MEQ/L (3.5-5.1); SODIUM (NA) 139 MEQ/L (136-145)
[2016-07-13 04:17] LABS: ALKALINE PHOSPHATASE 67 U/L (45-117); ALT (GPT) 74 U/L (12-78); TOTAL BILIRUBIN ADULT 0.5 MG/DL (0.2-1.0)
[2016-07-13] MEDS ORDERED: MAGNESIUM HYDROXIDE SUSP 30 ML CUP PO PRN (10:15)
[2016-07-13] MEDS ORDERED: ACETAMINOPHEN 325 MG TAB PO PRN (10:15)
[2016-07-13] MEDS ORDERED: LORazepam 2 MG/ML VIAL IM PRN (10:15)
[2016-07-13] MEDS ORDERED: ALUMINUM/MAGNESIUM/SIMETH 30 ML CUP PO PRN (10:15)
--- NOTE | 2016-07-13 10:32 | HHI.HP ---
Provisional Diagnosis Admission Date [place] I. Schizophrenia chronic paranoid type with exacerbation f 20.0 Certification of Person's Competence To Provide Express and Informed Consent I have personally examined Adelaide Garduno , a person being served at [facility] on, Jul 13, 2016 10:19. Express and informed consent means consent voluntarily given in writing, by a competent person, after sufficient explanation and disclosure of the subject matter involved to enable the person to make a knowing and willful decision without any element of force, fraud, deceit, duress, or other form of constraint or coercion. This person is 18 years of age or older, is not now known to be incompetent to consent to treatment with a guardian advocate, and does not have a health care surrogate or proxy currently making medical treatment decisions. I have found this person to be one of the following: [] Competent to provide express and informed consent, as defined above, for voluntary admission to this facility and is competent to provide express and informed consent for treatment. He/she has the consistent capacity to make well reasoned, willful, and knowing decisions concerning his or her medical or mental health treatment. The person fully and consistently understands the purpose of the admission for examination/placement and is fully capable of personally exercising all rights assured [place] [] Incompetent to provide express and informed consent to voluntary admission, and this is incompetent to provide express and informed consent to treatment. The person must be transferred to involuntary status and a petition for a guardian advocate filed with the Circuit Court. [x Refusing to provide express and informed consent to voluntary admission but is competent to provide express and informed consent for treatment. The person must be discharged or transferred to involuntary status. Form shall be completed within 24 hours of a person's arrival at the receiving facility and filed in the clinical record of each person: 1. Admitted on a voluntary basis 2. Permitted to provide express and informed consent to his/her own treatment 3. Allowed to transfer from involuntary to voluntary status 4. Prior to permitting a person to consent to his or her own treatment after having been previously found incompetent to consent to treatment. History of Present Illness Capacity: Lacks Capacity (patient lacks capacity to agree to admission, has capacity to be 2 medications) HPI Patient had 26-year-old male well known to us from multiple prior contacts comes here under an ex parte signed by a sourcing engineer in [place] dated 07/11/16 at 2:48 PM there was full without by patient's mother. Ex parte reviewed by me essentially stating patient noncompliant medication becoming more paranoid psychotic responding to internal stimuli noncompliant medications. Isolate himself in the room becoming more intimidating. Patient initially seen at [facility] been transferred here for further care. Patient screened in the ED urine toxicology was not done blood alcohol level of 48. At the present time patient laying in the [place] on C pod somewhat aroused and agitated intense labile did acknowledge noncompliance medication stating that the doses were "too strong for him making him feel like a robot. So he unilaterally started decreasing the doses now showing increased arousal with lack of sleep for a number of days thoughts racing in his head though he denies auditory hallucinations he appears to be responding to internal stimuli. He shows no insight into this disease stating his mother sent him here. Of interest patient was hospitalized here 06/15/16 through 06/20/[id number] Tj jose. And referred to [facility] outpatient. He has had multiple prior hospitalizations before that episode also. Name event at the present time patient does meet criteria for involuntary psychiatric hospitalization under the Syed act. I'll do first opinion requests second opinion I feel at this time he has capacity sign for his medications we'll continue medications as per his prior discharge. Hopeless. Fairly short stay patient can return home with follow-up in the community Review of Systems Constitutional: DENIES: Diaphoretic episodes, Fatigue, Fever, Weight gain, Weight loss, Chills, Dizziness, Change in appetite, Night Sweats Endocrine: DENIES: Heat/cold intolerance, Polydipsia, Polyuria, Polyphagia Eyes: DENIES: Blurred vision, Diplopia, Eye inflammation, Eye pain, Vision loss , Photosensitivity, Double Vision Ears, nose, mouth, throat: DENIES: Tinnitus, Hearing loss, Vertigo, Nasal discharge, Oral lesions, Throat pain, Hoarseness, Ear Pain, Running Nose, Epistaxis, Sinus Pain, Toothache, Odynophagia Respiratory: DENIES: Apneas, Cough, Snoring, Wheezing, Hemoptysis, Sputum production, Shortness of breath Cardiovascular: DENIES: Chest pain, Palpitations, Syncope, Dyspnea on Exertion , PND, Lower Extremity Edema, Orthopnea, Claudication Gastrointestinal: DENIES: Abdominal pain, Black stools, Bloody stools, Constipation, Diarrhea, Nausea, Vomiting, Difficulty Swallowing, Anorexia Genitourinary: DENIES: Sexual dysfunction, Urinary frequency, Urinary incontinence, Urgency, Hematuria, Dysuria, Nocturia, Penile Discharge, Testicular Pain, Testicular Swelling Musculoskeletal: DENIES: Joint pain, Muscle aches, Stiffness, Joint Swelling, Back pain, Neck pain Integumentary: DENIES: Abnormal pigmentation, Nail changes, Pruritus, Rash Hematologic/lymphatic: DENIES: Bruising, Lymphadenopathy Immunologic/allergic: DENIES: Eczema, Urticaria Neurologic: DENIES: Abnormal gait, Headache, Localized weakness, Paresthesias, Seizures, Speech Problems, Tremor, Poor Balance Psychiatric: COMPLAINS OF: Mood changes, Agitation Past Psych History Psychological trauma history Denies Violence risk - others (6 mos) Patient increasingly aggressive at home Violence risk - self (6 mos) Denies Substance Abuse History Drugs/Alcohol past 12 months Patient blood alcohol level of 48 Past Family Social History Coded Allergies: No Known Allergies (Verified , 06/15/16) Past Medical History Nonspecific Active Scripts Olanzapine 2.5 Mg Tab7.5 Mg PO Q12HR 15 Days Ref 1 Prov:Tj Jose MD 06/20/16 Benztropine 1 Mg Tab1 Mg PO HS 15 Days Ref 1 Prov:Tj Jose MD 06/20/16 Family History Patient denies mental health issues or addictions and family Social History Patient lives with family Patient's Strengths (min. 2) Patient verbal able axis health care Physical Exam Be seen screaming ED exam reviewed and agreed with vital signs blood pressure 113/63 pulse 91 respirations 16 Vital Signs Vital Signs Date Time Temp Pulse Resp B/P Pulse Ox O2 Delivery O2 Flow Rate FiO2 07/13/16 03:34 98.7 91 16 113/63 99 Mental Status Examination Alert female oriented male so neurologist attitude on his cot nurse Denise present throughout session. He is guarded of cooperative with very little insight Appearance Somewhat disheveled Speech: Pressured, Rapid, Tangential Orientation: x3 Memory: Unremarkable (poor) Thought Process: Linear Thought Content: Paranoid Language Greek Fund of Knowledge Poor to fair Hallucination Type: None (denies that appears to be responding to internal stimuli) Attention and Concentration: Other (poor) Suicidal Ideation: No (denies) Previous Suicide Attempts: No Homicidal Ideation: No Previous Homicide Attempts: No Insight: Poor Judgment: Poor Affect: Other (increased range and intensity) Mood: Angry, Oppositional, Irritable Motor Activity: Normal gait Assessment & Plan Problem List: (1) Paranoid type schizophrenia, chronic state with acute exacerbation ICD Code: F20.0 Assessment & Plan Estimated LOS 5-7 days patient does meet criteria for involuntary psychiatric hospitalization on the Syed act I will do first opinion request second opinion. I feel this time he has capacity to sign for medication. We will restart medication per the med reconciliation. Hopefully this this will be a fairly short stay and he can return home with his family for follow-up outpatient [facility] act Discharge Planning To be determined Request HC Surrog/Guard Advoc?: No Red Norman MD Jul 13, 2016 10:32
[2016-07-13] MEDS: OLANZapine 2.5 MG TAB PO SCH ×2 (10:55→21:37)
--- NOTE | 2016-07-13 12:46 | PD.CONS ---
Provisional Diagnosis Admission Date Jul 13, 2016 at 11:43 [place] I. Schizophrenia chronic paranoid type with exacerbation f 20.0 History of Present Illness Service Psychiatry Consult Requested By Primary Care Physician No Primary Care Physician HPI Patient had 26-year-old male well known to us from multiple prior contacts comes here under an ex parte signed by a defense attorney in [facility] dated 07/11/16 at 2:48 PM there was full without by patient's mother. Ex parte reviewed by me essentially stating patient noncompliant medication becoming more paranoid psychotic responding to internal stimuli noncompliant medications. Isolate himself in the room becoming more intimidating. Patient initially seen at [facility] been transferred here for further care. Patient screened in the ED urine toxicology was not done blood alcohol level of 48. At the present time patient laying in the [place] [facility] C pod somewhat aroused and agitated intense labile did acknowledge noncompliance medication stating that the doses were "too strong for him making him feel like a robot. So he unilaterally started decreasing the doses now showing increased arousal with lack of sleep for a number of days thoughts racing in his head though he denies auditory hallucinations he appears to be responding to internal stimuli. He shows no insight into this disease stating his mother sent him here. Of interest patient was hospitalized here 06/15/16 through 06/20/[id number] Tj vides. And referred to [facility] outpatient. He has had multiple prior hospitalizations before that episode also. Name event at the present time patient does meet criteria for involuntary psychiatric hospitalization under the [place] act. I'll do first opinion requests second opinion I feel at this time he has capacity sign for his medications we'll continue medications as per his prior discharge. Hopeless. Fairly short stay patient can return home with follow-up in the community Patient seen and continues to make inappropriate remarks including suicidal remarks. Demonstrates loose associations as well. Review of Systems ROS Limitations: Clinical Condition Past Family Social History Coded Allergies: No Known Allergies (Verified , 06/15/16) Active Scripts Olanzapine 2.5 Mg Tab7.5 Mg PO Q12HR 15 Days Ref 1 Prov:Tj Vides MD 06/20/16 Benztropine 1 Mg Tab1 Mg PO HS 15 Days Ref 1 Prov:Tj Vides MD 06/20/16 Current Medications Medications (Trade) Dose Ordered Sig/Lorin Route Start Time Stop Time Status Last Admin (Ativan) 1 mg Q6H PRN PO 07/13/16 10:15 (Ativan Inj) 1 mg Q6H PRN IM 07/13/16 10:15 (Tylenol) 650 mg Q4H PRN PO 07/13/16 10:15 (Milk Of Magnesia Liq) 30 ml DAILY PRN PO 07/13/16 10:15 (Mag-Al Plus Susp Liq) 30 ml Q6H PRN PO 07/13/16 10:15 (Atarax) 50 mg Q6H PRN PO 07/13/16 10:15 (Cogentin) 1 mg HS PO 07/13/16 21:00 (ZyPREXA) 7.5 mg Q12HR PO 07/13/16 10:15 07/13/16 10:55 Family History Positive for psychotic illness Social History Not using alcohol or drugs. Patient's Strengths (min. 2) Patient verbal able axis health care Physical Exam Vital Signs Vital Signs Date Time Temp Pulse Resp B/P Pulse Ox O2 Delivery O2 Flow Rate FiO2 07/13/16 03:34 98.7 91 16 113/63 99 Mental Status Examination Speech: Rapid, Tangential Orientation: x3 Memory: Impaired (describe) (poor) Thought Process: Loose Association Thought Content: Paranoid Hallucination Type: None (denies that appears to be responding to internal stimuli) Attention and Concentration: Other (poor) Suicidal Ideation: No (denies) Previous Suicide Attempts: No Homicidal Ideation: No Previous Homicide Attempts: No Insight: Poor Judgment: Poor Affect: Other (increased range and intensity) Mood: Angry, Oppositional, Irritable Motor Activity: Normal gait Assessment & Plan Problem List: (1) Paranoid type schizophrenia, chronic state with acute exacerbation ICD Code: F20.0 Assessment & Plan Estimated LOS: 7 days will cosrose Syed act. Request HC Surrog/Guard Advoc?: No Hugh Knox MD Jul 13, 2016 12:46
[2016-07-13 13:51] VITALS: BP_SYST 130; PULSE 96; RESP 18; TEMP 98.2; O2SAT 96
[2016-07-13 19:04] VITALS: BP 141/71; PULSE 91; RESP 18; TEMP 98.1; O2SAT 99
[2016-07-13] MEDS: BENZTROPINE MESYLATE 1 MG TAB PO SCH (21:37)
[2016-07-13] MEDS: LORazepam 1 MG TAB PO PRN (22:20)
[2016-07-14 05:54] VITALS: BP 114/72; PULSE 70; RESP 17; TEMP 97.4; O2SAT 100
[2016-07-14] MEDS: OLANZapine 2.5 MG TAB PO SCH ×2 (08:29→21:00)
[2016-07-14 08:55] LABS: AUTOMATED NEUTROPHIL # 4.4 TH/MM3 (1.8-7.7); BASOPHIL # 0.1 TH/MM3 (0-0.2); EOSINOPHIL # 0.1 TH/MM3 (0-0.4); EOSINOPHIL % 1.7 % (0.0-4.0); HEMATOCRIT 46.2 % (39.0-51.0); HEMO FLAGS DIFF FINAL; LYMPH % 27.5 % (9.0-44.0); MEAN CELL VOLUME 79.8 FL (80.0-100.0); MEAN CORPUSCULAR HEMOGLOBIN 26.8 PG (27.0-34.0); MEAN CORPUSCULAR HGB CONC 33.6 % (32.0-36.0); MONO % 9.7 % (0.0-8.0); NEUT % 60.1 % (16.0-70.0); PLATELET COUNT 201 TH/MM3 (150-450); RED BLOOD COUNT 5.79 MIL/MM3 (4.50-5.90); RED CELL DISTRIBUTION WIDTH 14.3 % (11.6-17.2); WHITE BLOOD COUNT 7.4 TH/MM3 (4.0-11.0)
[2016-07-14 09:28] LABS: ALKALINE PHOSPHATASE 69 U/L (45-117); ALT (GPT) 77 U/L (12-78); ANION GAP 10 MEQ/L (5-15); AST (GOT) 41 U/L (15-37); BICARBONATE 28.5 MEQ/L (21.0-32.0); BLOOD UREA NITROGEN 12 MG/DL (7-18); CHLORIDE 102 MEQ/L (98-107); GLOMERULAR FILTRATION RATE 92 ML/MIN (>89); POTASSIUM 3.6 MEQ/L (3.5-5.1); SODIUM (NA) 140 MEQ/L (136-145); TOTAL BILIRUBIN ADULT 1.2 MG/DL (0.2-1.0)
--- NOTE | 2016-07-14 16:55 | HHI.PYPN ---
Subjective Remarks Patient was seen and case discussed with nursing. Patient has poor insight into his admission. He is hyperverbal with racing thoughts. His compliant with his medication here. Behaving well on the unit. Denies any psychosis. Says that one of his medications at home made him slow and slurred and he stopped taking it. He is calling his mother to verify which medication it was. Says he was sleeping poorly at home but sleeping well here Objective Alert: Yes [place]: Person, Place, Date Mood: Anxious Affect: Labile Memory Intact: Comment (not tested) Hallucinations: Auditory (denies) Delusions: No Delusion Type: Other (flight of ideas) Suicidal: Ideation (denies) Homicidal: Ideation (denies) Insight/Judgment Poor Labs Test 07/14/16 07:55 White Blood Count 7.4 TH/MM3 Red Blood Count 5.79 MIL/MM3 Hemoglobin 15.5 GM/DL Hematocrit 46.2 % Mean Corpuscular Volume 79.8 FL Mean Corpuscular Hemoglobin 26.8 PG Mean Corpuscular Hemoglobin 33.6 % Concent Red Cell Distribution Width 14.3 % Platelet Count 201 TH/MM3 Mean Platelet Volume 8.5 FL Neutrophils (%) (Auto) 60.1 % Lymphocytes (%) (Auto) 27.5 % Monocytes (%) (Auto) 9.7 % Eosinophils (%) (Auto) 1.7 % Basophils (%) (Auto) 1.0 % Neutrophils # (Auto) 4.4 TH/MM3 Lymphocytes # (Auto) 2.0 TH/MM3 Monocytes # (Auto) 0.7 TH/MM3 Eosinophils # (Auto) 0.1 TH/MM3 Basophils # (Auto) 0.1 TH/MM3 CBC Comment DIFF FINAL Differential Comment Sodium Level 140 MEQ/L Potassium Level 3.6 MEQ/L Chloride Level 102 MEQ/L Carbon Dioxide Level 28.5 MEQ/L Anion Gap 10 MEQ/L Blood Urea Nitrogen 12 MG/DL Creatinine 0.98 MG/DL Estimat Glomerular Filtration 92 ML/MIN Rate Random Glucose 89 MG/DL Calcium Level 9.4 MG/DL Total Bilirubin 1.2 MG/DL Aspartate Amino Transf 41 U/L (AST/SGOT) Alanine Aminotransferase 77 U/L (ALT/SGPT) Alkaline Phosphatase 69 U/L Total Protein 7.4 GM/DL Albumin 3.8 GM/DL Vitals/IOs Vital Signs Date Time Temp Pulse Resp B/P Pulse Ox O2 Delivery O2 Flow Rate FiO2 07/14/16 05:54 97.4 70 17 114/72 100 Assessment & Plan Problem List: (1) Paranoid type schizophrenia, chronic state with acute exacerbation ICD Code: F20.0 Assessment & Plan Continue current treatment plan Justification for Cont. Inpt. Patient will decompensate in a less restrictive setting Request HC Surrog/Guard Advoc?: No Pj Joshua DO Jul 14, 2016 16:55
[2016-07-14 17:00] VITALS: BP 128/79; PULSE 68; RESP 17; TEMP 98.5; O2SAT 95
[2016-07-14] MEDS: BENZTROPINE MESYLATE 1 MG TAB PO SCH (21:00)
[2016-07-14] MEDS: hydrOXYzine HCL 50 MG TAB PO PRN (22:44)
[2016-07-14] MEDS: LORazepam 1 MG TAB PO PRN (22:44)
[2016-07-15 05:48] VITALS: BP 130/89; PULSE 68; RESP 18; TEMP 98.7; O2SAT 100
[2016-07-15] MEDS: OLANZapine 2.5 MG TAB PO SCH ×3 (08:37→21:00)
[2016-07-15] MEDS: LORazepam 1 MG TAB PO PRN (08:55)
[2016-07-15 19:30] VITALS: BP_SYST 130; BP_SYST 138; BP_DIAS 81; BP_DIAS 89; PULSE 68; RESP 17; RESP 18; TEMP 98.1; TEMP 98.7; O2SAT 100
--- NOTE | 2016-07-15 19:33 | HHI.PYPN ---
Subjective Remarks Patient was seen and case discussed with nursing. Patient is refuses by mouth medication all day. Mother prefers that we provide IM backup if he refuses medication. Psychoeducation done with patient and now agrees to take his Zyprexa. He appears less internally preoccupied with less flight of ideas. To yesterday. Continues to have poor insight Objective Alert: Yes [place]: Person, Place, Date Mood: Anxious Affect: Blunted Memory Intact: Comment (not tested) Hallucinations: Auditory (denies) Delusions: No Delusion Type: Other (none elicited today) Suicidal: Ideation (denies) Homicidal: Ideation (denies) Insight/Judgment Poor Vitals/IOs Vital Signs Date Time Temp Pulse Resp B/P Pulse Ox O2 Delivery O2 Flow Rate FiO2 07/15/16 05:48 98.7 68 18 130/89 100 Assessment & Plan Problem List: (1) Paranoid type schizophrenia, chronic state with acute exacerbation ICD Code: F20.0 Assessment & Plan Continue current treatment plan Justification for Cont. Inpt. Patient will decompensate in a less restrictive setting Request HC Surrog/Guard Advoc?: No Pj Joshua DO Jul 15, 2016 19:32
[2016-07-15] MEDS: BENZTROPINE MESYLATE 1 MG TAB PO SCH (21:00)
[2016-07-15] MEDS ORDERED: OLANZapine IM 10 MG VIAL IM PRN (21:00)
[2016-07-16 06:19] VITALS: BP 127/67; PULSE 79; RESP 18; TEMP 97.9; O2SAT 99
[2016-07-16] MEDS: OLANZapine 2.5 MG TAB PO SCH (09:00)
--- NOTE | 2016-07-16 10:46 | HHI.PYPN ---
Subjective Remarks Patient seen and examined with counselor and nurse. Chart reviewed. Case discussed with nursing staff who reports patient has been no behavioral problem. On my examination today, patient presents with mildly pressured speech. Mood is slightly elevated. He emphatically denies auditory hallucinations or suicidal ideation. Denies side effects from medications. I do see from documentation that medication nonadherence was an issue prior to admission. Review of Systems Except as stated in HPI: all other systems reviewed are Neg Objective Alert: Yes [place]: Person, Place, Date Mood: Other (slightly elevated) Affect: Other (slightly expansive) Memory Intact: Comment (not formally assessed but seems generally intact) Hallucinations: Other (denies) Delusions: No Delusion Type: Other (no delusions elicited) Suicidal: Ideation (denies suicidal ideation) Homicidal: Ideation (no homicidal ideation) Insight/Judgment Poor Remarks No motor abnormalities noted. Thought process linear. Speech slightly pressured. No signs of withdrawal noted. Labs Labs reviewed. Vitals/IOs Vital Signs Date Time Temp Pulse Resp B/P Pulse Ox O2 Delivery O2 Flow Rate FiO2 07/16/16 06:19 97.9 79 18 127/67 99 Assessment & Plan Problem List: (1) Paranoid type schizophrenia, chronic state with acute exacerbation Assessment & Plan: Rule out schizoaffective disorder ICD Code: F20.0 Assessment & Plan Given the presenting issue with medication nonadherence and given the difficulties of administration of long-acting injectable Zyprexa, I will switch to oral Invega with plan for Invega Sustenna if well tolerated and efficacious. Continue to monitor on the inpatient unit. Continue other medications and care as ordered. Justification for Cont. Inpt. Monitoring for impairments in safety. Education changes in process. Risk for decompensation pending psychiatric stabilization. Discharge Planning Pending psychiatric stabilization Request HC Surrog/Guard Advoc?: No (not at this time) Tj Jose MD Jul 16, 2016 10:46
[2016-07-16 18:00] VITALS: BP 133/85; PULSE 73; RESP 18; TEMP 97.7; O2SAT 97
[2016-07-16] MEDS: BENZTROPINE MESYLATE 1 MG TAB PO SCH (20:53)
[2016-07-16] MEDS: PALIPERIDONE ER 6 MG TAB PO SCH (20:53)
[2016-07-16] MEDS: LORazepam 1 MG TAB PO PRN (20:55)
[2016-07-17 06:06] VITALS: BP 138/90; PULSE 72; RESP 18; TEMP 97.9; O2SAT 96
--- NOTE | 2016-07-17 11:53 | HHI.PYPN ---
Subjective Remarks Patient seen and examined. Chart reviewed. Case discussed with nurse, counselor and occupational therapist in treatment team. Per nursing staff, patient is social and outgoing and no behavioral problem. Counselor reports that patient's mother has shared that the patient tends to under report symptoms in an effort to obtain hasty discharge from the inpatient psychiatric unit. Occupational therapist notes that the patient has been coming to groups and his behavior has been generally appropriate. On my examination today, the patient continues to have some pressured speech. He says that he is feeling better now. He says that he slept well. He denies side effects from the Invega and is presently agreeable to long-acting injectable Invega Sustenna. No SI or HI voiced. No other issues noted. Review of Systems ROS Limitations: Poor Historian Except as stated in HPI: all other systems reviewed are Neg Objective Alert: Yes [place]: Person, Place, Date Mood: Other (remains a little elevated) Affect: Euthymic (bordering on expansive) Memory Intact: Comment (seems intact on clinical exam) Hallucinations: Other (no AVH) Delusions: No Delusion Type: Other (none elicited) Suicidal: Ideation (no SI) Homicidal: Ideation (no HI) Insight/Judgment Poor Remarks No motor abnormalities noted. Grooming and hygiene fair. Speech slightly pressured. Labs Labs reviewed. Vitals/IOs Vital Signs Date Time Temp Pulse Resp B/P Pulse Ox O2 Delivery O2 Flow Rate FiO2 07/17/16 06:06 97.9 72 18 138/90 96 Assessment & Plan Problem List: (1) Paranoid type schizophrenia, chronic state with acute exacerbation ICD Code: F20.0 Assessment & Plan We will need to administer a few more doses of Invega PO to confirm good tolerability and efficacy before initiating Invega Sustenna. Continue to monitor on the inpatient psychiatric unit. Continue other medications include care as ordered. Justification for Cont. Inpt. Monitoring for impairments in safety. Risk for decompensation pending psychiatric stabilization Discharge Planning Pending stabilization and hopefully initiation of a long-acting injectable Request HC Surrog/Guard Advoc?: No Tj Jose MD Jul 17, 2016 11:53
[2016-07-17 18:15] VITALS: BP 111/92; PULSE 79; RESP 18; TEMP 97.9; O2SAT 98
[2016-07-17] MEDS: BENZTROPINE MESYLATE 1 MG TAB PO SCH (20:50)
[2016-07-17] MEDS: PALIPERIDONE ER 6 MG TAB PO SCH (20:50)
[2016-07-17] MEDS: LORazepam 1 MG TAB PO PRN (20:52)
[2016-07-18 06:16] VITALS: BP 109/70; PULSE 65; RESP 18; TEMP 97.5; O2SAT 97
[2016-07-18] MEDS: hydrOXYzine HCL 50 MG TAB PO PRN ×2 (08:25→19:39)
--- NOTE | 2016-07-18 12:10 | HHI.PYPN ---
Subjective Remarks Patient seen and examined. Chart reviewed. Case discussed with nursing staff who reports the patient continues to have pressured speech and is noted to be responding to internal stimuli, giggling to himself at times. Sleep is also reportedly poor. Patient presents to me as minimizing his psychiatric symptomatology. For example he says that he "slept like a baby." His mood remains a little elevated and he says that he feels "more lively." He denies any SI/HI/AVH. Denies side effects from medications. Review of Systems ROS Limitations: Poor Historian Except as stated in HPI: all other systems reviewed are Neg Objective Alert: Yes [place]: Person, Place, Date Mood: Other (somewhat elevated) Affect: Other (bouyant ) Memory Intact: Comment (seems intact on clinical exam) Hallucinations: Other (Perhaps responding to int stim) Delusions: No Delusion Type: Other (none elicited) Suicidal: Ideation (Denies SI) Homicidal: Ideation (Denies HI) Insight/Judgment Poor Remarks No motoric abnormalities noted. Thought process fairly linear. Speech a little bit pressured. Grooming and hygiene fair. Labs Labs reviewed. No new labs. Vitals/IOs Vital Signs Date Time Temp Pulse Resp B/P Pulse Ox O2 Delivery O2 Flow Rate FiO2 07/18/16 06:16 97.5 65 18 109/70 97 Intake and Output 07/17/16 07/17/16 07/18/16 08:00 16:00 00:00 Intake Total 360 ml Balance 360 ml Assessment & Plan Problem List: (1) Paranoid type schizophrenia, chronic state with acute exacerbation ICD Code: F20.0 Assessment & Plan Patient remains somewhat symptomatic from his psychosis and does not seem to be deriving the benefit that I had hoped from his Invega. I will try titrating Invega to the 9mg dose to see if we can obtain some additional clinical efficacy from the higher dose before switching to a different agent. Continue to monitor on the inpatient unit. Continue other medications and care as ordered. Justification for Cont. Inpt. Some impairments in reality construction. Medication changes in process. Risk for decompensation pending psychiatric stabilization. Discharge Planning Pending psychiatric stabilization. Request HC Surrog/Guard Advoc?: No Tj Jose MD Jul 18, 2016 12:10
[2016-07-18] MEDS: PALIPERIDONE ER 3 MG TAB PO SCH (20:12)
[2016-07-18] MEDS: BENZTROPINE MESYLATE 1 MG TAB PO SCH (20:12)
[2016-07-18] MEDS: LORazepam 1 MG TAB PO PRN (20:13)
[2016-07-18 21:55] VITALS: BP 157/86; PULSE 71; RESP 16; TEMP 97.7; O2SAT 99
[2016-07-19 06:04] VITALS: BP 137/89; PULSE 81; RESP 18; TEMP 97.5; O2SAT 95
[2016-07-19] MEDS: hydrOXYzine HCL 50 MG TAB PO PRN (09:48)
[2016-07-19] MEDS: LORazepam 1 MG TAB PO PRN ×2 (09:48→21:32)
--- NOTE | 2016-07-19 10:41 | HHI.PYPN ---
Subjective Remarks Patient seen and examined. Chart reviewed. Case discussed with nursing staff who reports patient remained somewhat internally stimulated but has been no real behavioral problem. Counselor has spoken with patient's mother who believes that the patient is beginning to improve with Invega. On my examination today, patient is calm and pleasant. He feels that he is deriving the most benefit from the Atarax. Denies side effects from medications. Mood does seem more stable today. No SI/HI voiced. Review of Systems ROS Limitations: Poor Historian Except as stated in HPI: all other systems reviewed are Neg Objective Alert: Yes [place]: Person, Place, Date Mood: Calm Affect: Euthymic Memory Intact: Comment (Intact) Hallucinations: Other (Mild int stim) Delusions: No Delusion Type: Other (No delusions) Suicidal: Ideation (No SI) Homicidal: Ideation (No HI) Insight/Judgment Poor Remarks No motor abnormalities noted. Thought processes fairly linear. Labs Labs reviewed. Vitals/IOs Vital Signs Date Time Temp Pulse Resp B/P Pulse Ox O2 Delivery O2 Flow Rate FiO2 07/19/16 06:04 97.5 81 18 137/89 95 Assessment & Plan Problem List: (1) Paranoid type schizophrenia, chronic state with acute exacerbation ICD Code: F20.0 Assessment & Plan Initiate Invega Sustenna 234mg IM today. Plan for booster dose in 4-7 days. Plan to discontinue oral Invega within the next few days. Continue to monitor on inpatient unit. Continue other medications and care as ordered. Patient's case was presented to the [place] act court and the patient was retained on the unit by the womens health nurse practitioner. Justification for Cont. Inpt. Medication changes in process. Discharge Planning I will plan to retain the patient on the inpatient unit to allow for administration of the booster dose of Invega Sustenna. After that, patient will likely be ready for discharge barring some clinical deterioration. Anticipate discharge beginning of next week. Request HC Surrog/Guard Advoc?: No Tj Jose MD Jul 19, 2016 10:41
[2016-07-19] MEDS ORDERED: PALIPERIDONE PALMITATE 234 MG/1.5 ML SYRINGE IM ONE (12:00)
[2016-07-19 18:46] VITALS: BP 115/69; PULSE 97; RESP 16; TEMP 98.8; O2SAT 99
[2016-07-19] MEDS: PALIPERIDONE ER 3 MG TAB PO SCH (21:32)
[2016-07-19] MEDS: BENZTROPINE MESYLATE 1 MG TAB PO SCH (21:32)
[2016-07-20 05:56] VITALS: BP 139/70; PULSE 89; RESP 16; TEMP 97.5; O2SAT 100
[2016-07-20] MEDS: LORazepam 1 MG TAB PO PRN ×2 (09:14→21:56)
[2016-07-20] MEDS: hydrOXYzine HCL 50 MG TAB PO PRN (09:15)
--- NOTE | 2016-07-20 11:00 | HHI.PYPN ---
Subjective Remarks Patient seen and examined with counselor and nurse. Chart reviewed. Case discussed with nursing staff who reports patient does continue to verbalize some paranoid ideation such as believing that there are aliens around looking for housing, however he reportedly has the sense to deny this when asked about it directly. On my examination today, the patient is calm and pleasant. He is in good behavioral control. He denies any SI, HI or AVH. He does not verbalize any delusional material to me today. Counselor discusses the necessity of avoiding substances of abuse after discharge. Patient denies side effects from medications. He is agreeable to receiving booster dose of Invega Sustenna after the weekend. Review of Systems Except as stated in HPI: all other systems reviewed are Neg Objective Alert: Yes [place]: Person, Place, Date, Situation Mood: Calm Affect: Appropriate Memory Intact: Comment (remains intact) Hallucinations: Other (denies AVH) Delusions: No Delusion Type: Other (I can elicit no delusions) Suicidal: Ideation (No SI) Homicidal: Ideation (No HI) Insight/Judgment Poor Remarks No abnormal motor movements noted. Thought process fairly linear. Labs Labs reviewed. Vitals/IOs Vital Signs Date Time Temp Pulse Resp B/P Pulse Ox O2 Delivery O2 Flow Rate FiO2 07/20/16 05:56 97.5 89 16 139/70 100 Assessment & Plan Problem List: (1) Paranoid type schizophrenia, chronic state with acute exacerbation ICD Code: F20.0 Assessment & Plan Continue oral Invega for now. Plan for booster dose of Invega Sustenna after the weekend. Patient can likely be discharged solely on IM antipsychotic. Continue to monitor on the inpatient unit in the meantime. Continue other medications and care as ordered. Justification for Cont. Inpt. Medication changes in process. Risk for decompensation pending administration of booster dose of long-acting injectable antipsychotic. Discharge Planning Anticipate discharge after the weekend, most likely Saturday. Request HC Surrog/Guard Advoc?: No Tj Jose MD Jul 20, 2016 11:00
[2016-07-20 18:09] VITALS: BP 123/72; PULSE 89; RESP 16; TEMP 97.4; O2SAT 100
[2016-07-20] MEDS: BENZTROPINE MESYLATE 1 MG TAB PO SCH (21:56)
[2016-07-20] MEDS: PALIPERIDONE ER 3 MG TAB PO SCH (21:56)
[2016-07-21 06:06] VITALS: BP 103/67; PULSE 74; RESP 16; TEMP 97.9; O2SAT 100
[2016-07-21] MEDS: LORazepam 1 MG TAB PO PRN ×3 (08:56→20:14)
[2016-07-21] MEDS: BENZTROPINE MESYLATE 1 MG TAB PO SCH (20:11)
[2016-07-21] MEDS: PALIPERIDONE ER 3 MG TAB PO SCH (20:11)
[2016-07-21 20:24] VITALS: BP 130/70; PULSE 78; RESP 18; TEMP 97.6; O2SAT 100
--- NOTE | 2016-07-21 22:20 | HHI.PYPN ---
Subjective Remarks Pt seen and discussed with staff. Pt has been compliant and cooperative with treatment. No medication side effects. No aggression or agitation on unit. He describes mood as "positive". He denies SI/HI. Objective Alert: Yes [place]: Person, Place, Date, Situation Mood: Calm Affect: Appropriate Memory Intact: Comment (remains intact) Hallucinations: Other (denies AVH) Delusions: No Delusion Type: Other (I can elicit no delusions) Suicidal: Ideation (No SI) Homicidal: Ideation (No HI) Insight/Judgment poor Vitals/IOs Vital Signs Date Time Temp Pulse Resp B/P Pulse Ox O2 Delivery O2 Flow Rate FiO2 07/21/16 20:24 97.6 78 18 130/70 100 Assessment & Plan Problem List: (1) Paranoid type schizophrenia, chronic state with acute exacerbation ICD Code: F20.0 Assessment & Plan Continue current tx plan. Estimated LOS: days Justification for Cont. Inpt. risk of decompensation Request HC Surrog/Guard Advoc?: Luci Grijalva MD Jul 21, 2016 22:20
[2016-07-22 06:29] VITALS: BP 127/66; PULSE 84; RESP 19; TEMP 97.7; O2SAT 100
[2016-07-22] MEDS: LORazepam 1 MG TAB PO PRN ×2 (09:42→16:06)
[2016-07-22] MEDS: hydrOXYzine HCL 50 MG TAB PO PRN (14:08)
--- NOTE | 2016-07-22 14:19 | HHI.PYPN ---
Subjective Remarks Pt seen and discussed with staff. Pt reports that his mood is good, but c/o of poor sleep which staff confirms. No agitation on unit. Staff reports some bizarre behaviors and statements. No SI/HI Objective Alert: Yes [place]: Person, Place, Date, Situation Mood: Calm Affect: Appropriate Memory Intact: Comment (remains intact) Hallucinations: Other (denies AVH) Delusions: No Delusion Type: Other (none expressed, but pt has been making bizarre statements to staff) Suicidal: Ideation (No SI) Homicidal: Ideation (No HI) Insight/Judgment limited Vitals/IOs Vital Signs Date Time Temp Pulse Resp B/P Pulse Ox O2 Delivery O2 Flow Rate FiO2 07/22/16 06:29 97.7 84 19 127/66 100 Assessment & Plan Problem List: (1) Paranoid type schizophrenia, chronic state with acute exacerbation ICD Code: F20.0 Assessment & Plan Will add trazodone to regimen for sleep. Continue current tx plan. Estimated LOS : days Justification for Cont. Inpt. risk of decompensation. Request HC Surrog/Guard Advoc?: Luci Grijalva MD Jul 22, 2016 14:18
[2016-07-22] MEDS ORDERED: traZODone HCL 50 MG TAB PO PRN (14:30)
[2016-07-22 15:42] VITALS: BP 154/81; PULSE 85; RESP 18; TEMP 97.4; O2SAT 100
[2016-07-22] MEDS: PALIPERIDONE ER 3 MG TAB PO SCH (20:49)
[2016-07-22] MEDS: BENZTROPINE MESYLATE 1 MG TAB PO SCH (20:49)
[2016-07-23 05:40] VITALS: BP 129/62; PULSE 71; RESP 18; TEMP 98.1; O2SAT 100
[2016-07-23] MEDS ORDERED: PALI156P IM (10:09)
[2016-07-23] MEDS ORDERED: BENZ1TAB PO (10:09)
[2016-07-23] MEDS ORDERED: HYDR50TA94 PO (10:09)
--- NOTE | 2016-07-23 10:10 | HHI.DS ---
Psychiatry Discharge Summary Inpatient Psychiatric care?: Yes Advance Directive: No Reason Not Provided: Due to Patient Condition Mental Health AdvanceDirective: No Health Care Proxy: No Admission Admission Date Jul 13, 2016 at 11:43 Admission Diagnosis: (1) Schizophrenia, chronic with acute exacerbation ICD Code: F20.9 Brief History Patient had 26-year-old male well known to us from multiple prior contacts comes here under an ex parte signed by a developer programmer analyst in [facility] dated 07/11/16 at 2:48 PM there was full without by patient's mother. Ex parte reviewed by me essentially stating patient noncompliant medication becoming more paranoid psychotic responding to internal stimuli noncompliant medications. Isolate himself in the room becoming more intimidating. Patient initially seen at [facility] been transferred here for further care. Patient screened in the ED urine toxicology was not done blood alcohol level of 48. At the present time patient laying in the [place] on C pod somewhat aroused and agitated intense labile did acknowledge noncompliance medication stating that the doses were "too strong for him making him feel like a robot. So he unilaterally started decreasing the doses now showing increased arousal with lack of sleep for a number of days thoughts racing in his head though he denies auditory hallucinations he appears to be responding to internal stimuli. He shows no insight into this disease stating his mother sent him here. Of interest patient was hospitalized here 06/15/16 through 06/20/[id number] Tj vides. And referred to [facility] outpatient. He has had multiple prior hospitalizations before that episode also. Name event at the present time patient does meet criteria for involuntary psychiatric hospitalization under the [place] act. I'll do first opinion requests second opinion I feel at this time he has capacity sign for his medications we'll continue medications as per his prior discharge. Hopeless. Fairly short stay patient can return home with follow-up in the community Patient seen and continues to make inappropriate remarks including suicidal remarks. Demonstrates loose associations as well. Tobacco Use In Past 30 Days: No Tobacco Past 30 Days Alcohol Use: Never Hospital Course Patient was admitted to the locked, high acuity inpatient psychiatric unit. Appropriate precautions were in place throughout patient's hospital stay. The patient was seen and examined daily on the unit by psychiatry and also visited by counselor. Medications were adjusted. Patient was started on long-acting injectable Invega Sustenna given issues with adherence in the past. Patient tolerated medications well and had good response to Invega. Patient had improvement in presenting psychiatric symptomatology. There was no evidence of any suicidal or homicidal behavior on the inpatient unit. Patient remained in generally good behavioral control and was compliant with medications. On the day of discharge: Patient seen and examined. Chart reviewed. Case discussed with nursing staff. Patient has been no behavioral problem per nursing report. Case also discussed with counselor who has spoken with patient's mother. Mother reportedly feels that the patient is significantly improved and ready for discharge. On my examination today, the patient is calm and pleasant. He requests discharge from inpatient psychiatric unit today. Mood is reportedly stable and I can elicit no depressive or hypomanic/manic symptoms. He denies any suicidal or homicidal ideation, intent or plan. He denies any audiovisual hallucinations and I can elicit no delusional beliefs. He denies any side effects from medications, and we discussed the dosing regimen of the Invega Sustenna. No physical complaints. Weighing the acute, chronic, and protective factors and based on the available evidence, I developer programmer analyst to a reasonable degree of medical certainty that the patient is at low imminent risk of harm to self or others from a mental illness as defined under the [place] act and his level of function is adequate for outpatient care. The patient has maximized benefit from this inpatient psychiatric hospital stay and will be discharged today in stable condition with psychiatric follow-up as arranged by counselor. Patient is also to follow-up with primary care. I have reminded the patient regarding warning signs for need to return to the psychiatric emergency room as part of general safety plan. I have counseled the patient to abstain from substances of abuse. Results Blood Pressure 129 / 62 Vital Signs Date Time Temp Pulse Resp B/P Pulse Ox O2 Delivery O2 Flow Rate FiO2 07/23/16 05:40 98.1 71 18 129/62 100 Item Value Date Time Aspartate Amino Transf (AST/SGOT) 19 U/L 05/21/13 180 Alanine Aminotransferase (ALT/SGPT) 58 U/L 05/21/13 180 Alkaline Phosphatase 56 U/L 05/21/13 180 Free Thyroxine 0.87 NG/DL 03/13/13 0647 Thyroid Stimulating Hormone 3rd Gen 0.516 uIU/ML 03/13/13 0647 Cholesterol Level 130 MG/DL 03/13/13 0647 Triglycerides Level 52 MG/DL 03/13/13 0647 Salicylates Level LESS THAN 1.7 MG/DL L 11/05/14 0756 Rapid Plasma Reagin NON-REACTIVE 03/13/13 0647 White Blood Count 7.4 TH/MM3 07/14/16 0755 Hemoglobin 15.5 GM/DL 07/14/16 0755 Platelet Count 201 TH/MM3 07/14/16 0755 Sodium Level 140 MEQ/L 07/14/16 0755 Potassium Level 3.6 MEQ/L 07/14/16 0755 Chloride Level 102 MEQ/L 07/14/16 0755 Anion Gap 10 MEQ/L 07/14/16 0755 Blood Urea Nitrogen 12 MG/DL 07/14/16 0755 Creatinine 0.98 MG/DL 07/14/16 0755 Aspartate Amino Transf (AST/SGOT) 41 U/L H 07/14/16 0755 Alanine Aminotransferase (ALT/SGPT) 77 U/L 07/14/16 0755 Alkaline Phosphatase 69 U/L 07/14/16 0755 Ethyl Alcohol Level 48 MG/DL H 07/13/16 0340 Summary of Procedures None done Imaging None done Pending results at discharge: No Medications # of Antipsychotic meds at D/C: 1 Approp Antipsych med options 1 - Minimum of three failed multiple trials of monotherapy. 2 - Documented plan to taper to monotherapy due to previous use of multiple meds OR cross-taper in progress at D/C. 3 - Documentation of augmentation of Clozapine. 4 - Justification other than those listed in allowable values 1-3, document here : Discharge Discharge Date: Jul 23, 2016 Discharge Diagnosis: (1) Paranoid type schizophrenia, chronic state with acute exacerbation Diagnosis: Principal (stabilized; now on long-acting injectable) ICD Code: F20.0 GAF on discharge is 55 Mental Status Exam at Disch Patient is casually dressed. He is well groomed. He is maintaining basic hygiene. He is awake and alert and oriented 3. No evidence of delirium. No motoric abnormalities noted. Speech is within normal limits for rate, tone and volume. Mood is fair and affect is full and reactive. Thought process linear. No loosening of associations. No evident delusions. Denies audiovisual hallucinations. Denies suicidal or homicidal ideation, intent or plan. Insight and judgment are fair. Pt Condition on Discharge: Stable Discharge Disposition: Discharge Home Discharge Instructions Diet Instructions: As Tolerated, No Restrictions Activities you can perform: Weight Bearing as Nils Scheduled Appointment: as per counselor's notes New Medications: Paliperidone Palmitate Inj (Invega Sustenna Inj) 156 Mg/Ml Inj 156 MG IM Q28D This dose of Sustenna is due on 08/20/2016. Mental Health #1 Ref 0 VIAL Hydroxyzine HCl (Hydroxyzine HCl) 50 Mg Tab 50 MG PO Q6H PRN ANXIETY #30 Ref 1 TAB Continued Medications: Benztropine (Benztropine) 1 Mg Tab 1 MG PO HS Side effect management Days 15 Ref 1 TAB (This prescription has been renewed) Discontinued Medications: Olanzapine (Olanzapine) 2.5 Mg Tab 7.5 MG PO Q12HR Mental Health Days 15 Ref 1 TAB Discharge Time <= 30 minutes Discharge/Advance Care Plan Health Problems: (1) Paranoid type schizophrenia, chronic state with acute exacerbation Goals to promote your health * To prevent worsening of your condition and complications * To maintain your health at the optimal level Directions to meet your goals Take your medications as prescribed Follow your dietary instruction Follow activity as directed Keep your appointments as scheduled Take your immunizations and boosters as scheduled If your symptoms worsen call your PCP, if no PCP go to Urgent Care Center or Emergency Room For 29/10 questions related to your inpatient stay or results of tests pending at discharge, please contact Dr. Tj Vides at Smoking is Dangerous to Your Health. Avoid second hand smoking Tj Vides MD Jul 23, 2016 10:10
[2016-07-23] MEDS ORDERED: PALIPERIDONE PALMITATE 156 MG/ML SYRINGE IM ONE (11:00)
== END 2016-07-23 13:10 | disposition home or self-care (01) | DRG 885 ==
LOC: NEPD 03:13 → NEDA 11:43 → H270 12:00
PROVIDERS: ADMIT Psychiatry & Neurology Psychiatry; ATTEND Psychiatry & Neurology Psychiatry
DX: F20.0 Paranoid schizophrenia (principal); Z91.19 Patient's noncompliance with other medical treatment and regimen
CPT/HCPCS: 80053; 80307; 85025; 99284; J2426

== ENCOUNTER 2017-03-30 01:11 | Emergency (ER) | payer MEDICARE, OTHER ==
[~2017-03-30] VITALS: Ht 175.3 cm; Wt 97.5 kg
[~2017-03-30 01:11] MED LIST changes: +HYDR50TA94 PO; -OLAN2.5T PO; +PALI156P IM
[2017-03-30 01:12] VITALS: BP 142/91; PULSE 112; RESP 16; TEMP 98.2; O2SAT 96
[2017-03-30] MEDS ORDERED: ZYPR2.5T2 PO (01:19)
[2017-03-30] MEDS ORDERED: BENZ0.5T PO (01:20)
[2017-03-30 02:08] LABS: AUTOMATED NEUTROPHIL # 3.5 TH/MM3 (1.8-7.7); BASOPHIL % 0.8 % (0.0-2.0); EOSINOPHIL # 0.1 TH/MM3 (0-0.4); EOSINOPHIL % 1.4 % (0.0-4.0); HEMATOCRIT 44.5 % (39.0-51.0); LYMPH % 28.5 % (9.0-44.0); LYMPHOCYTE # 1.7 TH/MM3 (1.0-4.8); MEAN CORPUSCULAR HEMOGLOBIN 28.1 PG (27.0-34.0); MEAN CORPUSCULAR HGB CONC 33.8 % (32.0-36.0); MEAN PLATELET VOLUME 8.4 FL (7.0-11.0); MONO % 11.2 % (0.0-8.0); MONOCYTE # 0.7 TH/MM3 (0-0.9); NEUT % 58.1 % (16.0-70.0); PLATELET COUNT 175 TH/MM3 (150-450); RED BLOOD COUNT 5.36 MIL/MM3 (4.50-5.90); RED CELL DISTRIBUTION WIDTH 14.9 % (11.6-17.2)
[2017-03-30 02:24] LABS: ALBUMIN 4.1 GM/DL (3.4-5.0); AST (GOT) 321 U/L (15-37); BICARBONATE 26.1 MEQ/L (21.0-32.0); BLOOD UREA NITROGEN 5 MG/DL (7-18); CALCIUM 9.3 MG/DL (8.5-10.1); CHLORIDE 102 MEQ/L (98-107); CREATININE 0.96 MG/DL (0.60-1.30); GLOMERULAR FILTRATION RATE 93 ML/MIN (>89); GLUCOSE,RANDOM 122 MG/DL (74-106); SODIUM (NA) 139 MEQ/L (136-145)
[2017-03-30 02:27] LABS: ALKALINE PHOSPHATASE 112 U/L (45-117); ALT (GPT) 360 U/L (12-78); TOTAL BILIRUBIN ADULT 0.8 MG/DL (0.2-1.0); TOTAL PROTEIN 8.1 GM/DL (6.4-8.2)
--- NOTE | 2017-03-30 03:13 | PD ---
HPI Chief Complaint: Psychiatric Symptoms Time Seen by Provider: 03:10 Travel History International Travel<30 days: No Contact w/Intl Traveler<30days: No Traveled to known affect area: No History of Present Illness HPI 27-year-old male with history of schizophrenia presents for evaluation of auditory hallucinations. For the past 2 days he has been having auditory hallucinations. Specifically he is hearing the voice of the present. Denies any command auditory hallucinations. Denies any visual hallucinations. He endorses drinking wine tonight. Denies any illicit drug use. Denies any suicidal or homicidal ideation. He reports that currently he sees a psychiatrist at [facility] as prescribed benztropine, Zyprexa and invegga which he has been taking as prescribed. No other complaints at this time. PFSH Past Medical History Asthma: Yes (SINCE AGE 4 OR 5) Blood Disorders: No Bipolar Disorder: Yes Anxiety: Yes Depression: No Heart Rhythm Problems: No Cancer: No Cardiovascular Problems: No High Cholesterol: No Chemotherapy: No Chest Pain: No Congestive Heart Failure: No COPD: No Cerebrovascular Accident: No Diabetes: No Diminished Hearing: No Endocrine: No Gastrointestinal Disorders: No Genitourinary: No Headaches: No Immune Disorder: No Musculoskeletal: No Neurologic: No Psychiatric: Yes (Hx of treatment for Schizophrenia) Reproductive: No Respiratory: No Immunizations Current: Yes Migraines: No Radiation Therapy: No Schizophrenia: Yes Sleep Apnea: No Thyroid Disease: No Past Surgical History Surgical History: No Previous Surgery Other Surgery: Yes (see history and physical) Social History Alcohol Use: No Tobacco Use: Yes Substance Use: Yes (HX OF MARIJUANA) Allergies-Medications (Allergen,Severity, Reaction): Coded Allergies: No Known Allergies (Verified Adverse Reaction, Unknown, 03/30/17) Reported Meds & Prescriptions Reported Meds & Active Scripts Active Invega Sustenna Inj (Paliperidone Palmitate) 156 Mg/Ml Inj 156 Mg IM Q28D This dose of Sustenna is due on 08/20/2016. Reported Benztropine (Benztropine Mesylate) 0.5 Mg Tab 1 Mg PO HS Zyprexa (Olanzapine) 2.5 Mg Tab 10 Mg PO HS Review of Systems Except as stated in HPI: all other systems reviewed are Neg Physical Exam Narrative GENERAL: Well-nourished male in no acute distress SKIN: Warm and dry. HEAD: Atraumatic. Normocephalic. EYES: Pupils equal and round. No scleral icterus. No injection or drainage. ENT: No nasal bleeding or discharge. Mucous membranes pink and moist. NECK: Trachea midline. No JVD. CARDIOVASCULAR: Regular rate and rhythm. No murmur appreciated. RESPIRATORY: No accessory muscle use. Clear to auscultation. Breath sounds equal bilaterally. GASTROINTESTINAL: Abdomen soft, non-tender, nondistended. Hepatic and splenic margins not palpable. MUSCULOSKELETAL: No obvious deformities. No clubbing. No cyanosis. No edema. NEUROLOGICAL: Awake and alert. No obvious cranial nerve deficits. Motor grossly within normal limits. Normal speech. PSYCHIATRIC: Appropriate mood and affect; insight and judgment normal. Data Data Last Documented VS Vital Signs Date Time Temp Pulse Resp B/P (MAP) Pulse Ox O2 Delivery O2 Flow Rate FiO2 03/30/17 01:27 20 03/30/17 01:12 98.2 112 142/91 (108) 96 Room Air Orders Orders Complete Blood Count With Diff (03/30/17 01:30) Comprehensive Metabolic Panel (03/30/17 01:30) Psych Screen (03/30/17 01:30) Drug Screen, Random Urine (03/30/17 01:30) Alcohol (Ethanol) (03/30/17 01:30) Labs Laboratory Tests Test 03/30/17 01:40 White Blood Count 6.0 TH/MM3 Red Blood Count 5.36 MIL/MM3 Hemoglobin 15.0 GM/DL Hematocrit 44.5 % Mean Corpuscular Volume 83.0 FL Mean Corpuscular Hemoglobin 28.1 PG Mean Corpuscular Hemoglobin Concent 33.8 % Red Cell Distribution Width 14.9 % Platelet Count 175 TH/MM3 Mean Platelet Volume 8.4 FL Neutrophils (%) (Auto) 58.1 % Lymphocytes (%) (Auto) 28.5 % Monocytes (%) (Auto) 11.2 % Eosinophils (%) (Auto) 1.4 % Basophils (%) (Auto) 0.8 % Neutrophils # (Auto) 3.5 TH/MM3 Lymphocytes # (Auto) 1.7 TH/MM3 Monocytes # (Auto) 0.7 TH/MM3 Eosinophils # (Auto) 0.1 TH/MM3 Basophils # (Auto) 0.0 TH/MM3 CBC Comment DIFF FINAL Differential Comment Blood Urea Nitrogen 5 MG/DL Creatinine 0.96 MG/DL Random Glucose 122 MG/DL Total Protein 8.1 GM/DL Albumin 4.1 GM/DL Calcium Level 9.3 MG/DL Alkaline Phosphatase 112 U/L Aspartate Amino Transf (AST/SGOT) 321 U/L Alanine Aminotransferase (ALT/SGPT) 360 U/L Total Bilirubin 0.8 MG/DL Sodium Level 139 MEQ/L Potassium Level 3.6 MEQ/L Chloride Level 102 MEQ/L Carbon Dioxide Level 26.1 MEQ/L Anion Gap 11 MEQ/L Estimat Glomerular Filtration Rate 93 ML/MIN Urine Opiates Screen NEG Urine Barbiturates Screen NEG Urine Amphetamines Screen NEG Urine Benzodiazepines Screen NEG Urine Cocaine Screen NEG Urine Cannabinoids Screen NEG Ethyl Alcohol Level 100 MG/DL MDM Medical Decision Making Medical Screen Exam Complete: Yes Emergency Medical Condition: Yes Medical Record Reviewed: Yes Differential Diagnosis Schizophrenia, medication noncompliance, acute psychosis, schizoaffective disorder, major depressive disorder, substance induced mood disorder. Narrative Course 27-year-old male presents on fairly requesting psychiatric evaluation of auditory hallucinations. Mental health screening discussed with the patient. Psychiatric screen ordered. Lab work has been reviewed. He has an alcohol level of 100. Elevated liver enzymes of unknown etiology. Denies any history of hepatitis, IV drug use. Recommended outpatient follow-up with primary care physician in 2 weeks for repeat liver function testing. He is medically cleared for psychiatric disposition. Diagnosis Primary Impression: Schizophrenia, chronic with acute exacerbation Additional Impression: Elevated liver enzymes Additional Instructions: Follow-up with primary care physician for repeat liver function testing in 2 weeks. Elliot Andres Mar 30, 2017 03:13
[2017-03-30 08:00] VITALS: BP 142/86; PULSE 81; RESP 17; O2SAT 97
[2017-03-30 08:28] VITALS: BP 141/96; PULSE 110; RESP 18; TEMP 98.2; O2SAT 97
[2017-03-30 14:00] VITALS: BP 150/93; PULSE 92; RESP 18; O2SAT 99
--- NOTE | 2017-03-30 14:00 | PD.PSY.CON ---
Provisional Diagnosis Admission Date [place] I. Schizophrenia chronic paranoid type f 20.0, alcohol abuse with intoxication f 10.129 History of Present Illness Service Psychiatry Consult Requested By EDMD Reason for Consult Assessment Primary Care Physician No Primary Care Physician HPI Patient 27-year-old male comes that [facility] on a voluntary basis for assessment. Wishes well known to us from multiple prior contacts to mental health system. Patient initially stating that is having some increased voices in his head denying that they are of a command nature denying any visual hallucinations however he also stated his drinking wine tonight with a blood alcohol level of 100. Denies other drug use. Patient also states his been fasting and exercising quite a bit. Of interest patient stated that he had a good meal here in the J pod waiting for me and is feeling much better. He denies any voices or visions denies any suicidality or homicidality. He states he has his medications at home, he is compliant with his follow-up appointments through the [facility] at [facility]. He does wish to go home. He is here on a voluntary basis. At this time I feel he does not meet criteria for either voluntary or involuntary psychiatric hospitalization. 11 to be discharged today. No Rx by me. He may continue taking his own schedule medications at home. Absolute abstinence. Follow-up with [facility] Review of Systems Constitutional: DENIES: Diaphoretic episodes, Fatigue, Fever, Weight gain, Weight loss, Chills, Dizziness, Change in appetite, Night Sweats Endocrine: DENIES: Heat/cold intolerance, Polydipsia, Polyuria, Polyphagia Eyes: DENIES: Blurred vision, Diplopia, Eye inflammation, Eye pain, Vision loss , Photosensitivity, Double Vision Ears, nose, mouth, throat: DENIES: Tinnitus, Hearing loss, Vertigo, Nasal discharge, Oral lesions, Throat pain, Hoarseness, Ear Pain, Running Nose, Epistaxis, Sinus Pain, Toothache, Odynophagia Respiratory: DENIES: Apneas, Cough, Snoring, Wheezing, Hemoptysis, Sputum production, Shortness of breath Cardiovascular: DENIES: Chest pain, Palpitations, Syncope, Dyspnea on Exertion , PND, Lower Extremity Edema, Orthopnea, Claudication Gastrointestinal: DENIES: Abdominal pain, Black stools, Bloody stools, Constipation, Diarrhea, Nausea, Vomiting, Difficulty Swallowing, Anorexia Genitourinary: DENIES: Sexual dysfunction, Urinary frequency, Urinary incontinence, Urgency, Hematuria, Dysuria, Nocturia, Penile Discharge, Testicular Pain, Testicular Swelling Musculoskeletal: DENIES: Joint pain, Muscle aches, Stiffness, Joint Swelling, Back pain, Neck pain Integumentary: DENIES: Abnormal pigmentation, Nail changes, Pruritus, Rash Hematologic/lymphatic: DENIES: Bruising, Lymphadenopathy Immunologic/allergic: DENIES: Eczema, Urticaria Neurologic: DENIES: Abnormal gait, Headache, Localized weakness, Paresthesias, Seizures, Speech Problems, Tremor, Poor Balance Psychiatric: DENIES: Anxiety, Confusion, Mood changes, Depression, Hallucinations, Agitation, Suicidal Ideation, Homicidal Ideation, Delusions Past Family Social History Coded Allergies: No Known Allergies (Verified Adverse Reaction, Unknown, 03/30/17) Active Scripts Paliperidone Palmitate Inj (Invega Sustenna Inj) 156 Mg/Ml Inj, 156 MG IM Q28D for Mental Health, #1 VIAL 0 Refills This dose of Sustenna is due on 08/20/2016. Prov:Tj Jose MD 07/23/16 Reported Medications Benztropine (Benztropine) 0.5 Mg Tab, 1 MG PO HS, #30 TAB 0 Refills 03/30/17 Olanzapine (Zyprexa) 2.5 Mg Tab, 10 MG PO HS, #30 TAB 0 Refills 03/30/17 Discontinued Scripts Hydroxyzine HCl (Hydroxyzine HCl) 50 Mg Tab, 50 MG PO Q6H Y for ANXIETY, #30 TAB 1 Refill Prov:jT Jose MD 07/23/16 Family Psych History Patient brother who is schizophrenic Social History Patient lives at home with his family and siblings Patient's Strengths (min. 2) Patient verbal irritable [facility] Physical Exam Patient seen screened and cleared in ED at the present time patient sitting quietly in his room nurse Amirah present throughout session. Patient no acute distress. Patient in no respiratory distress. No complaints of abdominal pain. Patient moving all 4 extremities without difficulty. No abnormal motor movements noted Vital Signs Vital Signs Date Time Temp Pulse Resp B/P (MAP) Pulse Ox O2 Delivery O2 Flow Rate FiO2 03/30/17 08:28 98.2 110 18 141/96 (111) 97 Room Air Lab Results Test 03/30/17 01:40 White Blood Count 6.0 TH/MM3 Red Blood Count 5.36 MIL/MM3 Hemoglobin 15.0 GM/DL Hematocrit 44.5 % Mean Corpuscular Volume 83.0 FL Mean Corpuscular Hemoglobin 28.1 PG Mean Corpuscular Hemoglobin Concent 33.8 % Red Cell Distribution Width 14.9 % Platelet Count 175 TH/MM3 Mean Platelet Volume 8.4 FL Neutrophils (%) (Auto) 58.1 % Lymphocytes (%) (Auto) 28.5 % Monocytes (%) (Auto) 11.2 % Eosinophils (%) (Auto) 1.4 % Basophils (%) (Auto) 0.8 % Neutrophils # (Auto) 3.5 TH/MM3 Lymphocytes # (Auto) 1.7 TH/MM3 Monocytes # (Auto) 0.7 TH/MM3 Eosinophils # (Auto) 0.1 TH/MM3 Basophils # (Auto) 0.0 TH/MM3 CBC Comment DIFF FINAL Differential Comment Blood Urea Nitrogen 5 MG/DL Creatinine 0.96 MG/DL Random Glucose 122 MG/DL Total Protein 8.1 GM/DL Albumin 4.1 GM/DL Calcium Level 9.3 MG/DL Alkaline Phosphatase 112 U/L Aspartate Amino Transf (AST/SGOT) 321 U/L Alanine Aminotransferase (ALT/SGPT) 360 U/L Total Bilirubin 0.8 MG/DL Sodium Level 139 MEQ/L Potassium Level 3.6 MEQ/L Chloride Level 102 MEQ/L Carbon Dioxide Level 26.1 MEQ/L Anion Gap 11 MEQ/L Estimat Glomerular Filtration Rate 93 ML/MIN Urine Opiates Screen NEG Urine Barbiturates Screen NEG Urine Amphetamines Screen NEG Urine Benzodiazepines Screen NEG Urine Cocaine Screen NEG Urine Cannabinoids Screen NEG Ethyl Alcohol Level 100 MG/DL Mental Status Examination Appearance: Appropriate Consciousness: Alert Orientation: x4 Motor Activity: Normal gait Speech: Unremarkable Language: Adequate Fund of Knowledge: Adequate Attention and Concentration: Adequate Memory: Unremarkable Mood: Appropriate Affect: Appropriate Thought Process & Associations: Intact Thought Content: Appropriate Hallucination Type: None Delusion Type: None Suicidal Ideation: No Suicidal Plan: No Suicidal Intention: No Homicidal Ideation: No Homicidal Plan: No Homicidal Intention: No Insight: Adequate Judgment: Adequate Assessment & Plan Problem List: (1) Alcohol abuse with intoxication ICD Codes: F10.129 - Alcohol abuse with intoxication, unspecified (2) Schizophrenia ICD Codes: F20.9 - Schizophrenia, unspecified Status: Acute Assessment & Plan Estimated LOS: days patient does not meet criteria for inpatient psychiatric hospitalization. Thus is okay by psych for discharge. No Rx by me. He may continue his own scheduled home medications. Absolute abstinence. And referral back to his clinician through [place] act Discharge Planning See above Request HC Surrog/Guard Advoc?: No Problem Qualifiers (1) Schizophrenia: Qualified Codes: F20.0 - Paranoid schizophrenia Red Norman MD Mar 30, 2017 13:59
--- NOTE | 2017-03-30 15:04 | PD ---
Physical Exam Date Seen by Provider: Mar 30, 2017 Narrative 27 y male with schizoaffective disorder presents to the ED with hallucinations with alcohol intoxication. Patient was medically cleared to see psych. Psych evaluated and found the patient's symptoms of hallucinations were likely exacerbated by alcohol consumption. Patient will be discharged home to his mother and follow up outpatient. Advised on abstinence from alcohol. Patient will follow up with Tito Alas as scheduled. Data Data Last Documented VS Vital Signs Date Time Temp Pulse Resp B/P (MAP) Pulse Ox O2 Delivery O2 Flow Rate FiO2 03/30/17 16:29 03/30/17 14:00 92 18 99 03/30/17 08:28 98.2 Room Air Orders Orders Complete Blood Count With Diff (03/30/17 01:30) Comprehensive Metabolic Panel (03/30/17 01:30) Psych Screen (03/30/17 01:30) Drug Screen, Random Urine (03/30/17 01:30) Alcohol (Ethanol) (03/30/17 01:30) Diet Regular Basic (03/30/17 Breakfast) Diet Regular Basic (03/30/17 Lunch) Ed Discharge Order (03/30/17 15:04) Labs Laboratory Tests Test 03/30/17 01:40 White Blood Count 6.0 TH/MM3 Red Blood Count 5.36 MIL/MM3 Hemoglobin 15.0 GM/DL Hematocrit 44.5 % Mean Corpuscular Volume 83.0 FL Mean Corpuscular Hemoglobin 28.1 PG Mean Corpuscular Hemoglobin Concent 33.8 % Red Cell Distribution Width 14.9 % Platelet Count 175 TH/MM3 Mean Platelet Volume 8.4 FL Neutrophils (%) (Auto) 58.1 % Lymphocytes (%) (Auto) 28.5 % Monocytes (%) (Auto) 11.2 % Eosinophils (%) (Auto) 1.4 % Basophils (%) (Auto) 0.8 % Neutrophils # (Auto) 3.5 TH/MM3 Lymphocytes # (Auto) 1.7 TH/MM3 Monocytes # (Auto) 0.7 TH/MM3 Eosinophils # (Auto) 0.1 TH/MM3 Basophils # (Auto) 0.0 TH/MM3 CBC Comment DIFF FINAL Differential Comment Blood Urea Nitrogen 5 MG/DL Creatinine 0.96 MG/DL Random Glucose 122 MG/DL Total Protein 8.1 GM/DL Albumin 4.1 GM/DL Calcium Level 9.3 MG/DL Alkaline Phosphatase 112 U/L Aspartate Amino Transf (AST/SGOT) 321 U/L Alanine Aminotransferase (ALT/SGPT) 360 U/L Total Bilirubin 0.8 MG/DL Sodium Level 139 MEQ/L Potassium Level 3.6 MEQ/L Chloride Level 102 MEQ/L Carbon Dioxide Level 26.1 MEQ/L Anion Gap 11 MEQ/L Estimat Glomerular Filtration Rate 93 ML/MIN Urine Opiates Screen NEG Urine Barbiturates Screen NEG Urine Amphetamines Screen NEG Urine Benzodiazepines Screen NEG Urine Cocaine Screen NEG Urine Cannabinoids Screen NEG Ethyl Alcohol Level 100 MG/DL MDM Supervised Visit with TORIE: No Diagnosis Primary Impression: Schizophrenia, chronic with acute exacerbation Additional Impression: Elevated liver enzymes Additional Instruction: Follow-up with primary care physician for repeat liver function testing in 2 weeks. Lizzette Salomon Mar 30, 2017 15:04
== END 2017-03-30 16:37 | disposition home or self-care (01) ==
LOC: NEPD 01:11 → NEPJ 16:37
DX: F20.9 Schizophrenia, unspecified (principal); R74.8 Abnormal levels of other serum enzymes; F10.951 Alcohol use, unspecified with alcohol-induced psychotic disorder with hallucinations; J45.909 Unspecified asthma, uncomplicated; F31.9 Bipolar disorder, unspecified; F41.9 Anxiety disorder, unspecified; Z72.0 Tobacco use; Z79.899 Other long term (current) drug therapy
CPT/HCPCS: 80053; 80307; 85025; 99284